=== PATIENT | male | born 1935 | race Caucasian/White ===

== ENCOUNTER 2016-08-05 12:02 | Outpatient (CLI) | payer MEDICARE, OTHER | END 2016-08-05 12:03 | disposition home or self-care (01) | DX: M79.609 Pain in unspecified limb (principal) ==

== ENCOUNTER 2016-10-12 16:23 | Outpatient (CLI) | payer MEDICARE, OTHER ==
--- NOTE | 2016-10-12 21:27 | MRI Report ---
EXAM: RIGHT CALF/TIBIA MRI WITHOUT CONTRAST EXAM DATE: 10/12/2016 05:06 PM. CLINICAL HISTORY: Right calf pain for 4 days while walking. COMPARISON: None. TECHNIQUE: Multiplanar, multisequence T1-weighted and fluid-sensitive sequences of the calf/tibia wit hout contrast. Other: None. FINDINGS: Bones: No fractures or subluxations. No marrow edema. No bone lesions. Joint Spaces: Visualized portions of the ankle and knee joints are unremarkable. Tendons: Where visualized, the Achilles and plantaris tendons are intact. Musculature: There is mild edema in the medial soleus and gastrocnemius muscles, consistent with grad e 1 strains. A mild amount of fluid is in the medial crural fascia. Other: Subcutaneous edema is seen in the calf. IMPRESSION: Grade 1 strains of the medial soleus and gastrocnemius muscles. [facility] SECTION Referring Provider Line: [phone] SITE ID: [id number]
== END 2016-10-12 16:24 | disposition home or self-care (01) ==
LOC: DI 16:23
PROVIDERS: ATTEND Internal Medicine
DX: S86.811A Strain of other muscle(s) and tendon(s) at lower leg level, right leg, initial encounter (principal)

== ENCOUNTER 2017-02-21 07:09 | Outpatient (CLI) | payer MEDICARE, OTHER ==
[2017-02-21 11:59] LABS: BASOPHILS % (AUTO) 0.4 %; EOSINOPHILS # (AUTO) 0.2 10^3/uL (0.0-0.7); EOSINOPHILS % (AUTO) 2.7 %; HCT - HEMATOCRIT 42.1 % (42.0-52.0); HGB - HEMOGLOBIN 14.1 g/dL (14.0-18.0); LYMPHOCYTES # (AUTO) 1.9 10^3/uL (1.5-3.5); LYMPHOCYTES % (AUTO) 23.3 %; MEAN CORPUSCULAR HEMOGLOBIN 30.5 pg (27.0-31.0); MEAN CORPUSCULAR HGB CONC 33.6 g/dL (32.0-36.0); MEAN PLATELET VOLUME 8.4 fL (7.4-11.4); MONOCYTES # (AUTO) 0.8 10^3/uL (0.0-1.0); MONOCYTES % (AUTO) 10.2 %; NEUTROPHILS # (AUTO) 5.1 10^3/uL (1.5-6.6); NEUTROPHILS % (AUTO) 63.4 %; RED BLOOD COUNT 4.63 10^6/uL (4.70-6.10); UNCORRECTED WHITE BLOOD COUNT 8.1 x10^3/uL; WHITE BLOOD COUNT 8.1 x10^3/uL (4.8-10.8)
[2017-02-21 12:12] LABS: ALBUMIN/GLOBULIN RATIO 1.6 (1.0-2.2); BILIRUBIN,TOTAL 0.5 mg/dL (0.2-1.0); BUN - BLOOD UREA NITROGEN 20 mg/dL (6-20); CALCIUM 9.3 mg/dL (8.5-10.3); CARBON DIOXIDE - CO2 31 mmol/L (21-32); CHLORIDE 101 mmol/L (101-111); CHOL/HDL RATIO 2.7 (<5.0); CHOLESTEROL 159 mg/dL; GFR - MDRD 72 (>89); GLUCOSE 88 mg/dL (70-100); HDL CHOLESTEROL 60 mg/dL; LDL/HDL RATIO 1.4 (<3.6); POTASSIUM 3.4 mmol/L (3.5-5.0); SODIUM 141 mmol/L (135-145); TOTAL PROTEIN 6.3 g/dL (6.7-8.2); TRIGLYCERIDES 71 mg/dL; VLDL CHOLESTEROL 14 mg/dL
== END 2017-02-21 07:10 | disposition home or self-care (01) ==
LOC: LAB.F 07:09
PROVIDERS: ATTEND Internal Medicine
DX: I10 Essential (primary) hypertension (principal); E78.5 Hyperlipidemia, unspecified
CPT/HCPCS: 36415; 80053; 80061; 85025

== ENCOUNTER 2018-02-26 08:09 | Outpatient (CLI) | payer MEDICARE, OTHER ==
[2018-02-26 12:32] LABS: BASOPHILS # (AUTO) 0.1 10^3/uL (0.0-0.1); BASOPHILS % (AUTO) 0.7 %; EOSINOPHILS # (AUTO) 0.2 10^3/uL (0.0-0.7); EOSINOPHILS % (AUTO) 2.6 %; HGB - HEMOGLOBIN 13.9 g/dL (14.0-18.0); LYMPHOCYTES # (AUTO) 1.5 10^3/uL (1.5-3.5); LYMPHOCYTES % (AUTO) 18.8 %; MEAN CORPUSCULAR HEMOGLOBIN 31.4 pg (27.0-31.0); MEAN CORPUSCULAR VOLUME 92.3 fL (80.0-94.0); MEAN PLATELET VOLUME 8.7 fL (7.4-11.4); MONOCYTES # (AUTO) 0.8 10^3/uL (0.0-1.0); MONOCYTES % (AUTO) 9.9 %; NEUTROPHILS # (AUTO) 5.2 10^3/uL (1.5-6.6); PLT - PLATELET COUNT 185 10^3/uL (130-450); RED BLOOD COUNT 4.41 10^6/uL (4.70-6.10); WHITE BLOOD COUNT 7.7 x10^3/uL (4.8-10.8)
[2018-02-26 12:43] LABS: ALBUMIN 3.6 g/dL (3.2-5.5); ALBUMIN/GLOBULIN RATIO 1.2 (1.0-2.2); ALKALINE PHOSPHATASE 53 IU/L (42-121); ALT ALANINE AMINOTRANSFERASE 22 IU/L (10-60); AST ASPARTATE AMINOTRANSFERASE 29 IU/L (10-42); BILIRUBIN,TOTAL 0.6 mg/dL (0.2-1.0); BUN - BLOOD UREA NITROGEN 22 mg/dL (6-20); CALCIUM 8.9 mg/dL (8.5-10.3); CARBON DIOXIDE - CO2 31 mmol/L (21-32); CHLORIDE 102 mmol/L (101-111); CHOL/HDL RATIO 2.3 (<5.0); CHOLESTEROL 139 mg/dL; GFR - MDRD 72 (>89); GLUCOSE 95 mg/dL (70-100); HDL CHOLESTEROL 61 mg/dL; LDL CHOLESTEROL,CALCULATED 66 mg/dL; LDL/HDL RATIO 1.1 (<3.6); SODIUM 138 mmol/L (135-145); TOTAL PROTEIN 6.5 g/dL (6.7-8.2); VLDL CHOLESTEROL 12 mg/dL
== END 2018-02-26 08:10 | disposition home or self-care (01) ==
LOC: LAB.F 08:09
PROVIDERS: ATTEND Internal Medicine
DX: N40.0 Benign prostatic hyperplasia without lower urinary tract symptoms (principal); Z79.899 Other long term (current) drug therapy; I10 Essential (primary) hypertension; E78.5 Hyperlipidemia, unspecified
CPT/HCPCS: 36415; 80053; 80061; 83721; 85025

== ENCOUNTER 2018-03-04 08:37 | Outpatient (CLI) | payer MEDICARE, OTHER ==
[2018-03-04 18:13] LABS: MEAN RETIC VALUE 119.4; RED BLOOD COUNT 4.52 10^6/uL (4.70-6.10)
== END 2018-03-04 08:38 | disposition home or self-care (01) ==
LOC: LAB.F 08:37
PROVIDERS: ATTEND Internal Medicine
DX: D64.9 Anemia, unspecified (principal)
CPT/HCPCS: 36415; 82607; 82728; 83010; 85044; 86880

== ENCOUNTER 2018-07-30 15:57 | Outpatient (CLI) | payer MEDICARE, OTHER | END 2018-07-30 23:59 | disposition home or self-care (01) | LOC: LAB.F 15:57 | PROVIDERS: ATTEND Registered Nurse | DX: M79.674 Pain in right toe(s) (principal) | CPT/HCPCS: 36415; 84550 ==

== ENCOUNTER 2018-10-23 16:08 | Outpatient (CLI) | payer MEDICARE, OTHER ==
--- NOTE | 2018-10-25 15:32 | XRAY Report ---
Reason: NECK PAIN, CHRONIC, LOW BACK PAIN, DISH, DJD, BACK Procedure Date: 10/23/2018 Accession Number: [id number] / [id number] Procedure: XR - Cervical Spine 2 View CPT Code: FULL RESULT: EXAM: CERVICAL SPINE RADIOGRAPHY EXAM DATE: 10/23/2018 04:50 PM. CLINICAL HISTORY: Chronic neck pain. COMPARISONS: None. TECHNIQUE: 3 views. FINDINGS: Alignment: Normal. No spondylolisthesis or scoliosis. Bones: The cervical vertebral bodies and posterior elements are well visualized from the skull base through C7-T1. No acute fracture seen. Possible old fracture deformity involving spinous process of C7. Disks and facets: Moderate multilevel osteoarthritic changes present. Soft Tissues: Normal. No prevertebral soft tissue swelling. The visualized lung apices are clear. IMPRESSION: 1. No acute fracture seen, with moderate multilevel osteoarthritic changes. 2. Possible old fracture deformity involving spinous process of C7. [facility]
--- NOTE | 2018-10-25 15:36 | XRAY Report ---
Reason: NECK PAIN, CHRONIC, LOW BACK PAIN, DISH, DJD, BACK Procedure Date: 10/23/2018 Accession Number: [id number] / [id number] Procedure: XR - Thoracic Spine 2 View CPT Code: FULL RESULT: EXAM: THORACIC SPINE RADIOGRAPHY EXAM DATE: 10/23/2018 04:50 PM. CLINICAL HISTORY: Chronic back pain. COMPARISON: None. TECHNIQUE: 2 views. FINDINGS: Alignment: Mild levoscoliosis, centered at T8, with Salazar angle of 7.4 degrees. Bones: No fractures or bone lesions. Disks: Mild degenerative changes present. Evidence of DISH seen. Soft Tissues: Normal. The visualized lungs and cardiomediastinal silhouette are normal. IMPRESSION: 1. Mild levoscoliosis and degenerative changes described above, with evidence of DISH. 2. No evidence of acute fracture. [facility]
--- NOTE | 2018-10-25 15:40 | XRAY Report ---
Reason: NECK PAIN, CHRONIC, LOW BACK PAIN, DISH, DJD, BACK Procedure Date: 10/23/2018 Accession Number: [id number] / [id number] Procedure: XR - Lumbar Spine 2 View CPT Code: FULL RESULT: EXAM: LUMBOSACRAL SPINE RADIOGRAPHY EXAM DATE: 10/23/2018 04:50 PM. CLINICAL HISTORY: Chronic back pain. COMPARISONS: None. TECHNIQUE: 3 views. FINDINGS: Alignment: There is mild compensatory lumbar dextroscoliosis, with Salazar angle of 4 degrees, centered at L3. Bones: Five iyh-kni-spakfsm lumbar vertebral bodies are present. There is mild wedging deformity at L1. Disks and facets: Moderate multilevel osteoarthritic changes seen. Changes of DISH noted. Sacroiliac Joints: Unremarkable. Soft Tissues: Normal. The visualized bowel gas pattern is normal. IMPRESSION: 1. Compensatory lumbar dextroscoliosis centered at L3 described above. 2. Possible mild wedging deformity at L1. Correlate clinically with focal tenderness to exclude fracture. 3. Moderate multilevel osteoarthritic changes otherwise seen. [facility]
== END 2018-10-23 16:09 | disposition home or self-care (01) ==
LOC: DI 16:08
PROVIDERS: ATTEND Nurse Practitioner
DX: M47.812 Spondylosis without myelopathy or radiculopathy, cervical region (principal); M50.30 Other cervical disc degeneration, unspecified cervical region; M48.14 Ankylosing hyperostosis [Forestier], thoracic region; M51.34 Other intervertebral disc degeneration, thoracic region; M41.9 Scoliosis, unspecified; M47.816 Spondylosis without myelopathy or radiculopathy, lumbar region; M51.36 Other intervertebral disc degeneration, lumbar region
CPT/HCPCS: 72040; 72070; 72100

== ENCOUNTER 2018-10-29 10:22 | Outpatient (CLI) | payer MEDICARE, OTHER ==
[2018-10-29 17:30] LABS: ALBUMIN 4.2 g/dL (3.2-5.5); ALBUMIN/GLOBULIN RATIO 1.6 (1.0-2.2); CREATININE 0.9 mg/dL (0.6-1.2); TOTAL PROTEIN 6.9 g/dL (6.7-8.2)
== END 2018-10-29 10:23 | disposition home or self-care (01) ==
LOC: LAB.S 10:22
PROVIDERS: ATTEND Nurse Practitioner
DX: I10 Essential (primary) hypertension (principal); G62.9 Polyneuropathy, unspecified
CPT/HCPCS: 36415; 80053

== ENCOUNTER 2018-11-09 12:19 | Outpatient (CLI) | payer MEDICARE, OTHER ==
[2018-11-09] MEDS ORDERED: GADOBUTROL 10 MMOL/10 ML VIAL IVP ONE (14:25)
[2018-11-09] MEDS ORDERED: GADOBUTROL 10 MMOL/10 ML VIAL ONE (14:25)
--- NOTE | 2018-11-09 15:58 | MRI Report ---
Reason: PERIPHERAL NEUROPATHY, HAND MUSCLE WEAKNESS, DISH, Procedure Date: 11/09/2018 Accession Number: [id number] / [id number] Procedure: MRI - Cervical Spine W/O CPT Code: FULL RESULT: EXAM: MRI CERVICAL SPINE WITHOUT CONTRAST. EXAM DATE: 11/09/2018 01:13 PM. CLINICAL HISTORY: Peripheral neuropathy, hand muscle weakness, DISH. COMPARISONS: CERVICAL SPINE 2 VIEW 10/23/2018 4:26 PM. TECHNIQUE: Multiplanar, multisequence T1-weighted and fluid-sensitive sequences of the cervical spine without contrast. Other: None. FINDINGS: Neurologic Structures: The visualized posterior fossa structures are unremarkable. No signal abnormality in the visualized spinal cord. Alignment: C2-C3 shows 4.3 mm retrolisthesis. No scoliosis. Bone Marrow: No gross fractures or bone lesions. No marrow edema. Interspace Levels/Facets: C1-C2: Significant arthrosis at the anterior arch of C1-C2 articulation. Lateral articulations are normal. C2-C3: 4.3 mm retrolisthesis at this level, left paracentral focal disk protrusion/extrusion with mass effect on the cord at this level. No areas of abnormal increased T2 signal. Mild to moderate central stenosis. Severe bilateral foraminal stenosis. C3-C4: Broad-based disk bulge, disk osteophyte complex is present. Hypertrophic facets. Moderate central stenosis. Moderate bilateral foraminal stenosis. C4-C5: Disk dehydration, broad-based disk bulge is present. Prominent facets. Moderate central stenosis. Severe bilateral foraminal stenosis. C5-C6: Disk dehydration, broad-based disk bulge is present. Hypertrophic facets. Severe central stenosis. Severe bilateral foraminal stenosis. C6-C7: Broad-based disk bulge, disk osteophyte complex, some cord remodeling. AP distance is 9.6 mm. Moderate central stenosis. Severe bilateral foraminal stenosis. C7-T1: Some disk dehydration, otherwise unremarkable. Musculature: Mild fatty atrophy of the multifidus muscle is seen. Other: The paravertebral and prevertebral soft tissues are normal. IMPRESSION: 1. C2-C3 shows 4.2 mm of retrolisthesis, no scoliosis. No areas of abnormal increased T2 signal in the posterior fossa or spinal cord. 2. C2-C3 shows left paracentral focal disk protrusion/extrusion with mass effect on the cord. Moderate central stenosis. Severe bilateral foraminal stenosis. 3. C3-C4 shows a broad-based disk bulge, moderate central stenosis and moderate bilateral foraminal stenosis. 4. C4-C5 shows moderate central stenosis and severe bilateral foraminal stenosis. 5. C5-C6 shows moderate central stenosis and severe bilateral foraminal stenosis. 6. C6-C7 shows a broad-based bulge, some cord remodeling. Severe central stenosis and severe bilateral foraminal stenosis. 7. C7-T1 show some disk dehydration, no stenosis. [facility]
--- NOTE | 2018-11-09 17:04 | MRI Report ---
Reason: NECK PAIN Procedure Date: 11/09/2018 Accession Number: [id number] / [id number] Procedure: MRI - Thoracic Spine W/O CPT Code: FULL RESULT: EXAM: MRI THORACIC SPINE WITHOUT CONTRAST EXAM DATE: 11/09/2018 01:50 PM. CLINICAL HISTORY: Neck pain. COMPARISONS: CERVICAL SPINE W/O 11/09/2018 1:04 PM LUMBAR SPINE W/WO 11/09/2018 2:08 PM. TECHNIQUE: Multiplanar, multisequence T1-weighted and fluid-sensitive sequences of the thoracic spine from C7 to L1 without contrast. Other: None. FINDINGS: Spinal Canal: No signal abnormality in the visualized spinal cord. Alignment: No scoliosis or spondylolisthesis. Bone Marrow: Mild chronic compression L1 vertebral body with concave deformity of the superior vertebral body endplate and 20% loss of vertebral body height. Disk Levels/Facets: C6-C7: Posterior 3 mm disk protrusion with mild ventral effacement of the cervical cord without cord signal abnormality. Severe left and moderate right foraminal stenosis from Luschka joint hypertrophic spurring. Severe disk degeneration. C7-T1: Mild bilateral facet joint arthrosis. Negative for foraminal stenosis. Anterolisthesis 2 mm C7 on T1. T1-T2: Mild bilateral facet joint arthrosis. Negative for spinal canal stenosis or foraminal stenosis. T2-T3: Mild bilateral facet joint arthrosis. Negative for spinal canal stenosis or foraminal stenosis. T3-T4: Mild facet joint arthrosis. T4-T5: Mild facet joint arthrosis. Negative for spinal canal stenosis or foraminal stenosis. Preservation of disk height. T5-T6: The neural foramina are negative for stenosis. Mild facet joint arthrosis. T6-T7: Preservation of disk height and signal. Negative for spinal canal stenosis or foraminal stenosis. T7-T8: Mild disk degeneration. The neural foramina are negative for stenosis. T8-T9: Mild disk degeneration. T9-T10: Mild disk degeneration. The left neural foramen is negative for stenosis. Mild right foraminal stenosis from a facet hypertrophy. T10-T11: Mild disk degeneration. The left neural foramen is negative for stenosis. Mild right foraminal stenosis from a facet hypertrophy. T11-T12: The left neural foramen is negative for stenosis. The right neural foramen is negative for stenosis. T12-L1: Negative for spinal canal stenosis or foraminal stenosis. Musculature: Normal. No edema or fatty atrophy. Other: The visualized lungs, mediastinum, and abdominal cavity are unremarkable. IMPRESSION: 1. MRI thoracic spine is compromised secondary to patient motion. 2. Negative for thoracic cord signal abnormality. 3. Negative for spinal canal stenosis or focal disk herniation. [facility]
--- NOTE | 2018-11-09 17:08 | MRI Report ---
Reason: PERIPHERAL NEUROPATHY, HAND MUSCLE WEAKNESS, DISH, Procedure Date: 11/09/2018 Accession Number: [id number] / [id number] Procedure: MRI - Lumbar Spine W/WO CPT Code: FULL RESULT: EXAM: MRI LUMBAR SPINE WITHOUT AND WITH CONTRAST EXAM DATE: 11/09/2018 02:48 PM. CLINICAL HISTORY: Peripheral neuropathy, hand muscle weakness, DISH. Low back pain and bilateral leg weakness. COMPARISONS: LUMBAR SPINE 2 VIEW 10/23/2018 4:26 PM SI JOINTS 02/21/2006 4:04 PM. TECHNIQUE: Multiplanar, multisequence T1-weighted and fluid-sensitive sequences of the lumbar spine from T12 to S1 before and after administration of intravenous contrast. Other: None. IV contrast: 9.5 cc Gadavist. FINDINGS: Neurologic Structures: The conus terminates at L2-L3. The conus medullaris and cauda equina are unremarkable. Alignment: No scoliosis or spondylolisthesis. Bone Marrow: Five kgp-jms-airlcyc lumbar vertebral bodies are assumed. Chronic compression L1 vertebral body with concave deformity of the superior vertebral body endplate and 20% loss of vertebral body height. Disk Levels/Facets: T12-L1: Mild disk degeneration. Negative for spinal canal stenosis or foraminal stenosis. L1-L2: Unremarkable. L2-L3: Unremarkable. L3-L4: Ligamentum flavum thickening. Severe right and moderate left facet joint arthrosis. Moderately severe spinal canal stenosis. Mild left and mild right lateral recess stenosis. Moderate bilateral foraminal stenosis from facet hypertrophy and diffuse disk bulge osteophyte complex. Severe disk degeneration. L4-L5: Laminectomy defect. Posterior right paracentral 4 mm disk protrusion with moderate right lateral recess stenosis and posterior displacement proximal right L5 nerve root (image 17 series 601). Mild central spinal canal stenosis. Mild right foraminal stenosis from facet hypertrophy. Negative for left foraminal stenosis. Nonenhancing right ventral epidural nodule 4 mm axial contrast T1-weighted sequence (image 17 series 901). L5-S1: Interbody osseous fusion. Negative for foraminal stenosis. Bone graft facet joint fusion. Negative for central spinal canal stenosis. Wide laminectomy. S1-S2: Lumbarization of S1. Negative for spinal canal stenosis or foraminal stenosis. Facet joint bone graft fusion. Spinal Canal: No enhancing masses within the spinal canal. No epidural abscess. Musculature: Severe low lumbar and sacrum posterior paraspinal muscle atrophy with fatty replacement. Other: The visualized retroperitoneum is unremarkable. Probable sacroiliac joint ankylosis. IMPRESSION: 1. Moderately severe spinal canal stenosis, mild bilateral lateral recess stenosis and moderate bilateral foraminal stenosis from severe disk degeneration, severe facet hypertrophic arthropathy, and ligamentum flavum thickening. 2. Posterior right paracentral L4-L5 4 mm disk protrusion/extrusion with moderate right lateral recess stenosis and posterior displacement proximal descending right L5 nerve root status post wide laminectomy and facet bone graft fusion. 3. Negative for spinal canal stenosis or foraminal stenosis L5-S1 interspaces status post wide laminectomy and posterior bone graft facet fusion. 4. Interbody osseous fusion L5-S1. 5. Mild chronic compression L1 vertebral body with concave deformity of the superior vertebral body endplate and 20% loss of vertebral body height. Comment: The following findings are so common in adults without low back pain that while we report their presence, they must be interpreted with caution and in the context of the clinical situation. (Reference Yassinevik et al, Spine 2001) Prevalence of findings in patients without low back pain: Disk degeneration (any evidence): 92% Disk desiccation/T2 signal loss: 83% Disk height loss: 56% Disk bulge: 64% Disk protrusion: 32% Annular tear/high intensity zone: 38% [facility]
== END 2018-11-09 12:20 | disposition home or self-care (01) ==
LOC: DI 12:19
PROVIDERS: ATTEND Nurse Practitioner
DX: M48.02 Spinal stenosis, cervical region (principal); M50.21 Other cervical disc displacement, high cervical region; M51.26 Other intervertebral disc displacement, lumbar region; M48.061 Spinal stenosis, lumbar region without neurogenic claudication; M62.81 Muscle weakness (generalized); G60.9 Hereditary and idiopathic neuropathy, unspecified; M48.10 Ankylosing hyperostosis [Forestier], site unspecified; R20.2 Paresthesia of skin
CPT/HCPCS: 72141; 72146; 72158; A9585

== ENCOUNTER 2019-05-25 10:15 | Outpatient (CLI) | payer MEDICARE, OTHER ==
[2019-05-25 10:57] LABS: BASOPHILS # (AUTO) 0.1 10^3/uL (0.0-0.1); BASOPHILS % (AUTO) 0.7 %; EOSINOPHILS # (AUTO) 0.2 10^3/uL (0.0-0.7); EOSINOPHILS % (AUTO) 2.2 %; HGB - HEMOGLOBIN 13.1 g/dL (14.0-18.0); LYMPHOCYTES # (AUTO) 1.3 10^3/uL (1.5-3.5); LYMPHOCYTES % (AUTO) 19.4 %; MEAN CORPUSCULAR HGB CONC 31.8 g/dL (32.0-36.0); MEAN CORPUSCULAR VOLUME 97.4 fL (80.0-94.0); MEAN PLATELET VOLUME 9.3 fL (7.4-11.4); MONOCYTES # (AUTO) 0.8 10^3/uL (0.0-1.0); MONOCYTES % (AUTO) 11.2 %; NEUTROPHILS # (AUTO) 4.5 10^3/uL (1.5-6.6); NEUTROPHILS % (AUTO) 66.1 %; PLT - PLATELET COUNT 195 10^3/uL (130-450); RED BLOOD COUNT 4.23 10^6/uL (4.70-6.10); RED CELL DISTRIBUTION WIDTH 13.2 % (12.0-15.0); WHITE BLOOD COUNT 6.9 x10^3/uL (4.8-10.8)
[2019-05-25 11:06] LABS: INR 1.1 (0.8-1.2); PT - PROTHROMBIN TIME 12.8 secs (9.9-12.6)
[2019-05-25 11:09] LABS: ALBUMIN 4.1 g/dL (3.2-5.5); ALBUMIN/GLOBULIN RATIO 1.8 (1.0-2.2); BILIRUBIN,TOTAL 0.9 mg/dL (0.2-1.0); CALCIUM 9.9 mg/dL (8.5-10.3); TOTAL PROTEIN 6.4 g/dL (6.7-8.2)
[2019-05-25 11:13] LABS: PARTIAL THROMBOPLASTIN TIME 36.3 secs (24.9-33.3)
== END 2019-05-25 10:16 | disposition home or self-care (01) ==
LOC: LAB 10:15
PROVIDERS: ATTEND Nurse Practitioner
DX: Z01.812 Encounter for preprocedural laboratory examination (principal)
CPT/HCPCS: 36415; 80053; 85025; 85610; 85730

== ENCOUNTER 2019-06-16 15:35 | Outpatient (CLI) | payer MEDICARE, OTHER ==
--- NOTE | 2019-06-17 01:29 | XRAY Report ---
Reason: LEFT HIP PAIN Procedure Date: 06/16/2019 Accession Number: [id number] / [id number] Procedure: WCP - Hip 1 View LT CPT Code: Final Report FULL RESULT: EXAM: LEFT HIP RADIOGRAPHY EXAM DATE: 06/16/2019 03:35 PM. CLINICAL HISTORY: LEFT HIP PAIN. COMPARISON: HIP 2 VIEW RT 12/14/2014 2:08 PM. TECHNIQUE: 2 views. FINDINGS: Bones: Normal bone mineralization. No fractures or bone lesion. Joints: No dislocation. Bilateral hip joint space narrowing and osteophyte formation, right greater than left. Soft Tissues: No soft tissue swelling. Extensive vascular calcifications are seen. IMPRESSION: Bilateral hip joint osteoarthritis. [facility]
== END 2019-06-16 23:59 | disposition home or self-care (01) ==
LOC: DI.WCP 15:35
PROVIDERS: ATTEND Nurse Practitioner
DX: M16.0 Bilateral primary osteoarthritis of hip (principal)

== ENCOUNTER 2019-07-23 09:42 | Outpatient (CLI) | payer MEDICARE, OTHER | END 2019-07-23 09:43 | disposition EMS.NT | LOC: EMS 09:42 | PROVIDERS: ATTEND Surgery | DX: M54.9 Dorsalgia, unspecified (principal) ==

== ENCOUNTER 2019-07-23 10:47 | Emergency (ER) | payer MEDICARE, OTHER ==
[2019-07-23] MEDS ORDERED: KETOROLAC 60 MG/2 ML VIAL IM STA (12:39)
[2019-07-23] MEDS ORDERED: HYDROmorphone 1 MG/ML CARPUJECT IM STA (12:39)
[2019-07-23 13:06] VITALS: BP 157/85
--- NOTE | 2019-07-23 13:11 | ED Physician Documentation ---
History of Present Illness - Stated complaint Stated Complaint: BACK PX - Chief complaint Chief Complaint: Back Pain - History obtained from History obtained from: Patient - Additonal information Additional information: Pt comes to the ED complaining of an increase in his post-operative back pain. Pt states he had surgery several days ago, and has been getting back into physical activity now. Pt states he did not have any distinct injury. He has been taking Vicodin 10/325, 1 tab q6h. No abdominal pain. No fevers or chills. Pt states the pain is not right at the incision site or in the spine, but lateral to the spine, spreading across his back on both sides, at the level of the incision. Pt denies drainage from the wound. No numbness or tingling in the legs. No weakness. No other complaints at this time. Review of Systems Ten Systems: 10 systems reviewed and negative Constitutional: reports: Reviewed and negative Eyes: reports: Reviewed and negative Ears: reports: Reviewed and negative Nose: reports: Reviewed and negative Throat: reports: Reviewed and negative Cardiac: reports: Reviewed and negative Respiratory: reports: Reviewed and negative GI: reports: Reviewed and negative : reports: Reviewed and negative Skin: reports: Reviewed and negative Musculoskeletal: reports: Back pain Neurologic: reports: Reviewed and negative Psychiatric: reports: Reviewed and negative Endocrine: reports: Reviewed and negative Immunocompromised: reports: Reviewed and negative PD PAST MEDICAL HISTORY - Past Medical History Cardiovascular: Hypertension, High cholesterol Respiratory: None Endocrine/Autoimmune: None GI: Colon polyps : None HEENT: Other Psych: None Musculoskeletal: Osteoarthritis, Chronic back pain Derm: None - Past Surgical History Past Surgical History: Yes General: Colonoscopy Ortho: Rotator cuff repair, Spine surgery - Present Medications Home Medications: Ambulatory Orders Medication Instructions Recorded Confirmed Aspirin [Aspir-Low] 81 mg PO DAILY 10/05/15 11/30/15 Pravastatin [Pravachol] 40 mg PO DAILY 10/05/15 11/29/15 Ramipril 10 mg PO BID 10/05/15 11/29/15 amLODIPine [Norvasc] 5 mg PO BID 10/05/15 11/29/15 hydroCHLOROthiazide [Hydrodiuril] 25 mg PO DAILY 10/05/15 11/29/15 Multivitamin [Multiple Vitamins] 02/20/18 Docusate Sodium 100 mg PO 07/23/19 HYDROcod/ACETAM 5/325 [[place] 5/325] 1 - 2 ea PO Q6H PRN 07/23/19 07/23/19 Hydrocodone/Acetaminophen 2 each PO Q4HR #20 tablet 07/23/19 [Hydrocodon-Acetaminophn 10-325] Methocarbamol [Robaxin-750] 07/23/19 - Allergies Allergies/Adverse Reactions: Allergies Allergy/AdvReac Type Severity Reaction Status Date / Time No Known Drug Allergies Allergy Verified 02/20/18 12:29 - Social History Does the pt smoke?: No Smoking Status: Never smoker Does the pt drink ETOH?: No Does the pt have substance abuse?: No - Immunizations Immunizations are current?: Yes PD ED PE NORMAL - Vitals Vital signs reviewed: Yes - General General: Alert and oriented X 3, No acute distress - HEENT HEENT: Atraumatic, PERRL, EOMI, Moist mucous membranes - Neck Neck: Supple, no meningeal sign - Cardiac Cardiac: RRR, No murmur, Strong equal pulses - Respiratory Respiratory: No respiratory distress, Clear bilaterally - Abdomen Abdomen: Soft, Non tender, Non distended - Back Back: No spinal TTP, Other (Pt has mild tenderness across his lumbar area generally and bilaterally. ROM moderately limited. ) - Derm Derm: Warm and dry, Other (PT has a lower lumbar incision site that is c/d/i. No erythema or edema. No induration or fluctuance. Wound is healing well with steri-strips in place.) - Extremities Extremities: No deformity - Neuro Neuro: Alert and oriented X 3 - Psych Psych: Normal mood, Normal affect Results - Vitals Vitals: Oxygen O2 Source Room air PD MEDICAL DECISION MAKING - ED course Complexity details: considered differential, d/w patient ED course: The pt was treated symptomatically in the ED. I did not find evidence of a wound infection, and no symptoms were present to indicate neurologic compromise. The pt did not demonstrate hemodynamic instability, and I felt aortic pathology was unlikely. The pain was mechanically exacerbated, and I felt it was unlikely to be related to the urinary system. I d/w pt that sometimes when a pt gets back to movement after a back surgery, the pain can increase for a bit. I have advised him that he may take more of his Vicodin if needed--up to 2 every 4 hours. If this still is not helpful he should follow up with his career transition specialist to discuss the matter further. We have discussed the usual indications for return. Departure - Departure Disposition: 01 Home, Self Care Clinical Impression: Back pain Qualifiers: Back pain location: low back pain Chronicity: acute Back pain laterality: right Sciatica presence: without sciatica Qualified Code(s): M54.5 - Low back pain Condition: Stable Instructions: ED Spasm Back No Trauma Prescriptions: Hydrocodone/Acetaminophen [Hydrocodon-Acetaminophn 10-325] 2 each PO Q4HR #20 tablet Comments: You may take up to 2 tablets of your hydrocodone every 4 hours as needed for pain. The Robaxin you should keep at the same dose you are already on. There is no evidence of any complication with your surgical site and your wound does not show any evidence of infection. Please follow-up with your surgeon as planned. Discharge Date/Time: 07/23/19 13:50
== END 2019-07-23 13:50 | disposition home or self-care (01) ==
LOC: ED 10:47
DX: M54.5 Low back pain (principal); Z98.890 Other specified postprocedural states; I10 Essential (primary) hypertension; Z79.82 Long term (current) use of aspirin
CPT/HCPCS: 96372; 99283; 99284; J1170

== ENCOUNTER 2019-07-27 17:38 | Outpatient (CLI) | payer MEDICARE, OTHER ==
[2019-07-27 18:18] LABS: ALBUMIN 3.7 g/dL (3.2-5.5); ALBUMIN/GLOBULIN RATIO 1.3 (1.0-2.2); BILIRUBIN,TOTAL 0.7 mg/dL (0.2-1.0); CALCIUM 9.1 mg/dL (8.5-10.3); TOTAL PROTEIN 6.6 g/dL (6.7-8.2)
[2019-07-27 18:30] LABS: PSA FREE 0.553 ng/mL (0.16-2.81)
[2019-07-27 18:31] LABS: PSA TOTAL 3.929 ng/mL (0.000-2.000)
== END 2019-07-27 23:59 | disposition home or self-care (01) ==
LOC: LAB 17:38
PROVIDERS: ATTEND Nurse Practitioner
DX: I10 Essential (primary) hypertension (principal); I65.29 Occlusion and stenosis of unspecified carotid artery; Z79.899 Other long term (current) drug therapy; N40.0 Benign prostatic hyperplasia without lower urinary tract symptoms
CPT/HCPCS: 36415; 80053; 84153; 84154

== ENCOUNTER 2019-08-06 08:00 | Outpatient (CLI) | payer MEDICARE, OTHER ==
[2019-08-06 18:40] LABS: ALBUMIN 4.2 g/dL (3.2-5.5); ALBUMIN/GLOBULIN RATIO 1.5 (1.0-2.2); BILIRUBIN,TOTAL 0.5 mg/dL (0.2-1.0); CALCIUM 9.8 mg/dL (8.5-10.3); CREATININE 1.1 mg/dL (0.6-1.2)
== END 2019-08-06 23:59 | disposition home or self-care (01) ==
LOC: LAB.WCP 08:00
PROVIDERS: ATTEND Nurse Practitioner
DX: I65.29 Occlusion and stenosis of unspecified carotid artery (principal); R60.9 Edema, unspecified
CPT/HCPCS: 36415; 80053; 83880

== ENCOUNTER 2019-08-14 22:38 | Emergency (ER) | payer MEDICARE, OTHER ==
--- NOTE | 2019-08-14 23:09 | ED Physician Documentation ---
PD HPI ABD PAIN - Stated complaint Stated Complaint: CANNOT VOID - Chief complaint Chief Complaint: Abd Pain - History obtained from History obtained from: Patient - History of Present Illness Timing - onset: How many days ago (4) Timing - details: Gradual onset, Waxing and waning Pain level max: 8 Pain level now: 0 Quality: Cramping Location: All over / everywhere (predominantly LLQ) Radiation: Other (no radiation) Improved by: Other (no ameliorating factors) Worsened by: Other (no exacerbating factors) Associated symptoms: Constipation. No: Fever, Nausea, Vomiting, Diarrhea Recently seen: Surgery - Additional information Additional information: recently underwent lumbar surgery and has been taking vicodin for pain control. Has not had BM for approximately 10 days, and c/o 4 days of urge to defecate without BM and abdominal cramping that is most pronounced in LLQ, episodic without pain between episodes. Episodes of abd. cramping are increasing in frequency and intensity of pain. no results with fleet's at home Review of Systems Constitutional: denies: Fever, Chills, Sweats GI: reports: Abdominal Pain, Constipation. denies: Nausea, Vomiting, Diarrhea : denies: Dysuria, Frequency PD PAST MEDICAL HISTORY - Past Medical History Past Medical History: Yes Cardiovascular: Hypertension, High cholesterol Respiratory: None Endocrine/Autoimmune: None GI: Colon polyps : None HEENT: Other Psych: None Musculoskeletal: Osteoarthritis, Chronic back pain Derm: None - Past Surgical History Past Surgical History: Yes General: Colonoscopy Ortho: Rotator cuff repair, Spine surgery - Present Medications Home Medications: Ambulatory Orders Medication Instructions Recorded Confirmed Aspirin [Aspir-Low] 81 mg PO DAILY 10/05/15 11/30/15 Pravastatin [Pravachol] 40 mg PO DAILY 10/05/15 11/29/15 Ramipril 10 mg PO BID 10/05/15 11/29/15 amLODIPine [Norvasc] 10 mg PO BID 10/05/15 11/29/15 hydroCHLOROthiazide [Hydrodiuril] 12.5 mg PO DAILY 10/05/15 11/29/15 Multivitamin [Multiple Vitamins] 1 tab DAILY 02/20/18 Docusate Sodium 100 mg PO 07/23/19 Hydrocodone/Acetaminophen 2 each PO Q4HR #20 tablet 07/23/19 [Hydrocodon-Acetaminophn 10-325] Naproxen 250 tab BID 08/14/19 08/14/19 Tamsulosin [Flomax] 1 tab DAILY 08/14/19 08/14/19 methocarbamoL [Robaxin] 1 tab QID 08/14/19 08/14/19 - Allergies Allergies/Adverse Reactions: Allergies Allergy/AdvReac Type Severity Reaction Status Date / Time No Known Drug Allergies Allergy Verified 08/14/19 22:48 - Social History Does the pt smoke?: No Smoking Status: Never smoker Does the pt drink ETOH?: No Does the pt have substance abuse?: No - Immunizations Immunizations are current?: Yes - POLST Patient has POLST: No PD ED PE NORMAL - Vitals Vital signs reviewed: Yes - General General: Alert and oriented X 3, No acute distress (NAD for most of H+P, but episode lasting 1-2 minutes of obvious painful distress), Well developed/nourished - HEENT HEENT: Moist mucous membranes - Cardiac Cardiac: RRR, No murmur - Respiratory Respiratory: No respiratory distress, Clear bilaterally - Abdomen Abdomen: Soft, Non tender, Non distended PD ED PE EXPANDED - Abdomen Abdomen: Decreased BS Results - Vitals Vitals: Vital Signs - 24 hr 08/14/19 08/15/19 22:42 00:51 Temperature 36.5 C Heart Rate 78 81 Respiratory 18 18 Rate Blood Pressure 189/93 H 175/78 H O2 Saturation 98 98 Oxygen O2 Source Room air PD MEDICAL DECISION MAKING - ED course Complexity details: re-evaluated patient, considered differential, d/w patient ED course: excellent results with soap suds enema (RN gave two of these and performed manual disimpaction as well; large, firm brown stool and resolution of symptoms ensued) Departure - Departure Disposition: 01 Home, Self Care Clinical Impression: Constipation Qualifiers: Constipation type: unspecified constipation type Qualified Code(s): K59.00 - Constipation, unspecified Condition: Good Instructions: ED Constipation Follow-Up: Gabbie Ernst ARNP, [employer] TECHNICIAN-C [Primary Care Provider] - Discharge Date/Time: 08/15/19 00:45
[2019-08-15 00:52] VITALS: BP 175/78
== END 2019-08-15 00:45 | disposition home or self-care (01) ==
LOC: ED 22:38
DX: K59.00 Constipation, unspecified (principal); Z98.890 Other specified postprocedural states; I10 Essential (primary) hypertension; Z79.82 Long term (current) use of aspirin
CPT/HCPCS: 99282; 99284

== ENCOUNTER 2019-10-01 08:00 | Outpatient (CLI) | payer MEDICARE, OTHER ==
[2019-10-01 15:24] LABS: BASOPHILS % (AUTO) 0.6 %; EOSINOPHILS # (AUTO) 0.2 10^3/uL (0.0-0.7); EOSINOPHILS % (AUTO) 2.5 %; HGB - HEMOGLOBIN 12.9 g/dL (14.0-18.0); LYMPHOCYTES # (AUTO) 1.8 10^3/uL (1.5-3.5); LYMPHOCYTES % (AUTO) 24.1 %; MEAN CORPUSCULAR HEMOGLOBIN 30.5 pg (27.0-31.0); MEAN CORPUSCULAR HGB CONC 31.6 g/dL (32.0-36.0); MEAN CORPUSCULAR VOLUME 96.5 fL (80.0-94.0); MEAN PLATELET VOLUME 10.6 fL (7.4-11.4); MONOCYTES # (AUTO) 0.8 10^3/uL (0.0-1.0); MONOCYTES % (AUTO) 10.6 %; NEUTROPHILS # (AUTO) 4.5 10^3/uL (1.5-6.6); NEUTROPHILS % (AUTO) 61.9 %; PLT - PLATELET COUNT 195 10^3/uL (130-450); RED BLOOD COUNT 4.23 10^6/uL (4.70-6.10); WHITE BLOOD COUNT 7.3 x10^3/uL (4.8-10.8)
[2019-10-01 15:44] LABS: ALBUMIN 4.1 g/dL (3.2-5.5); ALBUMIN/GLOBULIN RATIO 1.7 (1.0-2.2); BILIRUBIN,TOTAL 0.5 mg/dL (0.2-1.0); CALCIUM 9.6 mg/dL (8.5-10.3); TOTAL PROTEIN 6.5 g/dL (6.7-8.2)
== END 2019-10-01 23:59 | disposition home or self-care (01) ==
LOC: LAB.S 08:00
PROVIDERS: ATTEND Emergency Medicine
DX: R60.9 Edema, unspecified (principal); I10 Essential (primary) hypertension
CPT/HCPCS: 36415; 80053; 83880; 85025; 85379

== ENCOUNTER 2020-05-09 09:03 | Outpatient (CLI) | payer MEDICARE, OTHER ==
[2020-05-09 14:28] LABS: BASOPHILS % (AUTO) 0.7 %; EOSINOPHILS # (AUTO) 0.2 10^3/uL (0.0-0.7); EOSINOPHILS % (AUTO) 3.7 %; HGB - HEMOGLOBIN 13.4 g/dL (14.0-18.0); LYMPHOCYTES # (AUTO) 1.6 10^3/uL (1.5-3.5); LYMPHOCYTES % (AUTO) 25.2 %; MEAN CORPUSCULAR HEMOGLOBIN 30.7 pg (27.0-31.0); MEAN CORPUSCULAR HGB CONC 31.4 g/dL (32.0-36.0); MEAN CORPUSCULAR VOLUME 97.7 fL (80.0-94.0); MEAN PLATELET VOLUME 11.2 fL (7.4-11.4); MONOCYTES # (AUTO) 0.6 10^3/uL (0.0-1.0); MONOCYTES % (AUTO) 9.1 %; NEUTROPHILS # (AUTO) 3.8 10^3/uL (1.5-6.6); PLT - PLATELET COUNT 176 10^3/uL (130-450); RED BLOOD COUNT 4.37 10^6/uL (4.70-6.10); RED CELL DISTRIBUTION WIDTH 13.8 % (12.0-15.0); WHITE BLOOD COUNT 6.2 x10^3/uL (4.8-10.8)
[2020-05-09 15:28] LABS: ALBUMIN/GLOBULIN RATIO 1.9 (1.0-2.2); ALKALINE PHOSPHATASE 52 IU/L (42-121); ALT ALANINE AMINOTRANSFERASE 24 IU/L (10-60); AST ASPARTATE AMINOTRANSFERASE 27 IU/L (10-42); BILIRUBIN,TOTAL 0.9 mg/dL (0.2-1.0); BUN - BLOOD UREA NITROGEN 21 mg/dL (6-20); CALCIUM 9.4 mg/dL (8.5-10.3); CARBON DIOXIDE - CO2 31 mmol/L (21-32); CHLORIDE 107 mmol/L (101-111); CHOL/HDL RATIO 2.4 (<5.0); CHOLESTEROL 160 mg/dL; CREATININE 0.5 mg/dL (0.6-1.2); GLUCOSE 99 mg/dL (70-100); HDL CHOLESTEROL 67 mg/dL; LDL CHOLESTEROL,CALCULATED 79 mg/dL; LDL/HDL RATIO 1.2 (<3.6); TOTAL PROTEIN 6.1 g/dL (6.7-8.2); VLDL CHOLESTEROL 14 mg/dL
== END 2020-05-09 09:04 | disposition home or self-care (01) ==
LOC: LAB.S 09:03
PROVIDERS: ATTEND Nurse Practitioner
DX: F32.9 Major depressive disorder, single episode, unspecified (principal); Z79.899 Other long term (current) drug therapy; D64.9 Anemia, unspecified; N40.0 Benign prostatic hyperplasia without lower urinary tract symptoms; I10 Essential (primary) hypertension; E78.5 Hyperlipidemia, unspecified; G62.9 Polyneuropathy, unspecified
CPT/HCPCS: 36415; 80053; 80061; 83721; 84153; 84443; 85025

== ENCOUNTER 2020-06-06 15:19 | Outpatient (CLI) | payer MEDICARE, OTHER ==
--- NOTE | 2020-06-07 10:00 | Ultrasound Report ---
PROCEDURE: Testicle INDICATIONS: INGUINAL PAIN, BPH, ORGANIC ED TECHNIQUE: Real-time scanning was performed of the scrotum and testicles, with image documentation. Color and p ulse Doppler interrogation was performed of both testicles. Right groin was evaluated with Valsalva m aneuver. COMPARISON: None. FINDINGS: Right: Testicle is normal in size at 4.4 x 2.8 x 2.8 cm, and homogenous in echotexture. Epididymis is normal in overall size and morphology. Small epididymal cysts measuring 0.3 cm. Moderate hydrocele . No varicoceles. Overlying scrotal skin is normal in thickness. Fat-containing right inguinal hernia. The hernia neck measures 1 cm. The hernia is reducible. Left: Testicle is normal in size at 4.4 x 3 x 2.6 cm, and homogeneous in echotexture. Epididymis is normal in overall size and morphology. Small epididymal cysts measuring 0.6 cm. Moderate hydrocele. No varicoceles. Overlying scrotal skin is normal in thickness. Doppler: Color and pulse Doppler demonstrate normal and symmetric arterial flow in both testicles. IMPRESSION: 1. Small fat-containing right inguinal hernia. 2. Moderate sized bilateral hydroceles. No varicocele. 3. No testicular mass. Blood flow in the testes is symmetric. Reviewed by: Farhat Morales MD on 06/07/2020 9:59 AM PDT Approved by: Farhat Morales MD on 06/07/2020 9:59 AM PDT Station ID: [id number]
== END 2020-06-06 15:20 | disposition home or self-care (01) ==
LOC: DI 15:19
PROVIDERS: ATTEND Nurse Practitioner
DX: R10.2 Pelvic and perineal pain (principal); N40.0 Benign prostatic hyperplasia without lower urinary tract symptoms; N52.9 Male erectile dysfunction, unspecified; K40.90 Unilateral inguinal hernia, without obstruction or gangrene, not specified as recurrent; N43.3 Hydrocele, unspecified

== ENCOUNTER 2021-01-16 08:27 | Outpatient (CLI) | payer MEDICARE, OTHER ==
[2021-01-16 14:22] LABS: BASOPHILS % (AUTO) 0.5 %; EOSINOPHILS # (AUTO) 0.2 10^3/uL (0.0-0.7); EOSINOPHILS % (AUTO) 3.5 %; HCT - HEMATOCRIT 43.7 % (42.0-52.0); HGB - HEMOGLOBIN 14.1 g/dL (14.0-18.0); LYMPHOCYTES # (AUTO) 1.7 10^3/uL (1.5-3.5); LYMPHOCYTES % (AUTO) 27.1 %; MEAN CORPUSCULAR HGB CONC 32.3 g/dL (32.0-36.0); MEAN CORPUSCULAR VOLUME 99.3 fL (80.0-94.0); MEAN PLATELET VOLUME 10.8 fL (7.4-11.4); MONOCYTES # (AUTO) 0.6 10^3/uL (0.0-1.0); MONOCYTES % (AUTO) 9.7 %; NEUTROPHILS # (AUTO) 3.7 10^3/uL (1.5-6.6); NEUTROPHILS % (AUTO) 58.9 %; PLT - PLATELET COUNT 193 10^3/uL (130-450); RED CELL DISTRIBUTION WIDTH 13.3 % (12.0-15.0); WHITE BLOOD COUNT 6.3 x10^3/uL (4.8-10.8)
[2021-01-16 15:02] LABS: ALBUMIN 4.2 g/dL (3.2-5.5); ALBUMIN/GLOBULIN RATIO 1.9 (1.0-2.2); ALKALINE PHOSPHATASE 60 IU/L (42-121); ALT ALANINE AMINOTRANSFERASE 19 IU/L (10-60); AST ASPARTATE AMINOTRANSFERASE 19 IU/L (10-42); BUN - BLOOD UREA NITROGEN 22 mg/dL (6-20); CALCIUM 9.7 mg/dL (8.5-10.3); CARBON DIOXIDE - CO2 32 mmol/L (21-32); CHLORIDE 106 mmol/L (101-111); CHOL/HDL RATIO 2.4 (<5.0); CHOLESTEROL 181 mg/dL; CREATININE 1.1 mg/dL (0.6-1.2); GFR - MDRD 64 (>89); GLUCOSE 94 mg/dL (70-100); HDL CHOLESTEROL 75 mg/dL; LDL CHOLESTEROL,CALCULATED 91 mg/dL; LDL/HDL RATIO 1.2 (<3.6); POTASSIUM 3.4 mmol/L (3.5-5.0); SODIUM 143 mmol/L (135-145); TOTAL PROTEIN 6.4 g/dL (6.7-8.2); TRIGLYCERIDES 73 mg/dL; VLDL CHOLESTEROL 15 mg/dL
== END 2021-01-16 08:28 | disposition home or self-care (01) ==
LOC: LAB.S 08:27
PROVIDERS: ATTEND Internal Medicine
DX: I10 Essential (primary) hypertension (principal)
CPT/HCPCS: 36415; 80053; 80061; 83721; 85025

== ENCOUNTER 2021-01-24 07:43 | Outpatient (CLI) | payer MEDICARE, OTHER | END 2021-01-24 07:44 | disposition home or self-care (01) | LOC: LAB.S 07:43 | PROVIDERS: ATTEND Internal Medicine | DX: R53.83 Other fatigue (principal) | CPT/HCPCS: 36415; 84403 ==

== ENCOUNTER 2021-02-20 13:30 | Outpatient (CLI) | payer MEDICARE, OTHER ==
--- NOTE | 2021-02-20 15:19 | XRAY Report ---
PROCEDURE: Cervical Spine Complete INDICATIONS: CERVICAL SPONDYLOSIS,NECK PAIN TECHNIQUE: 6 view(s) of the cervical spine were acquired. COMPARISON: MRI cervical spine 11/09/2018 FINDINGS: Bones: No fractures or dislocations to the C7-T1 level. The lateral masses of C1 appear intact on t he odontoid view. No suspicious bony lesions. There is trace anterolisthesis of C4 on C5, C5 on C6 and C6 on C7. There is moderate to severe disc space narrowing at 67 with bridging anterior osteophyt es. Multilevel uncovertebral hypertrophy is present. Multilevel moderate to severe foraminal narrowin g is present most notable from C4-5 through C6-7 on the right and C3-4 through C6-7 on the left. Soft tissues: No prevertebral soft tissue swelling. IMPRESSION: Multilevel degenerative changes as above most notable from C4-5 through C6-7 bilaterally . Reviewed by: Gerri Gilmore MD on 02/20/2021 3:18 PM PST Approved by: Gerri Gilmore MD on 02/20/2021 3:18 PM PST Station ID: [id number]
--- NOTE | 2021-02-20 16:34 | MRI Report ---
PROCEDURE: Cervical Spine W/O INDICATIONS: NECK PAIN TECHNIQUE: Noncontrast sagittal T1 spin echo and T2 fast spin echo, sagittal STIR, foraminal oblique sagittal T2 fast spin echo, and axial gradient echo or T2 fast spin echo through the cervical spine. COMPARISON: None. FINDINGS: Image quality: Excellent. Alignment and Curvature: There is mild, approximately one half and 2 mm of C2-C3 retrolisthesis Ther e is mild, approximately 2-3 mm of C3-C4 anterolisthesis. Bone Marrow: Reactive endplate changes noted adjacent C6-C7 and C7-T1 discs.. Spinal Cord: Visualized spinal cord has normal size and signal. No cerebellar tonsillar herniation. Paraspinous Soft Tissues: No paravertebral masses. Prevertebral soft tissues are normal in thicknes s. C2-C3: Loss of disc signal. Moderate, diffuse disc bulge. Moderate-sized central disc protrusion. Mi ld ligamentum flavum hypertrophy. Severe narrowing of the central canal with compression of the cervi justin spinal cord. Moderate bilateral facet hypertrophy. Severe right and moderate left neural foramina l narrowing with compression of the exiting right C3 nerve root. C3-C4: Loss of disc signal. Mild, diffuse disc bulge. Mild bilateral facet hypertrophy. Mild bilate ral uncovertebral joint hypertrophy. Hksy-vy-jsjbfefe narrowing of the central canal. Moderate bilate ral neural foraminal narrowing. No neural compression. C4-C5: Loss of disc signal. Mild, diffuse disc bulge. Moderate bilateral facet hypertrophy. Mild ivory ateral uncovertebral joint hypertrophy. Severe narrowing of the central canal with mild compression o f the cervical spinal cord. Severe bilateral neural foraminal narrowing with compression of the exiti ng C5 nerve roots. C5-C6: Loss of disc signal. Mild, diffuse disc bulge. Moderate bilateral facet hypertrophy. Mild ivory ateral uncovertebral joint hypertrophy. Moderate narrowing of the central canal. Severe bilateral tiffany ral foraminal narrowing with compression of the exiting C6 nerve roots. C6-C7: Loss of disc signal and height. Moderate, diffuse disc bulge. Mild bilateral facet hypertroph y. Moderate bilateral uncovertebral joint hypertrophy. Severe narrowing of the central canal with com pression of the cervical spinal cord. Severe bilateral neural foraminal narrowing with compression of the exiting C7 nerve roots. C7-T1: Loss of disc signal. Mild, diffuse disc bulge. Mild bilateral facet hypertrophy. Mild narrowi ng of the central canal. Mild bilateral neural foraminal narrowing. No neural compression. IMPRESSION: 1. Multilevel degenerative disc disease. 2. Multilevel facet and uncovertebral arthropathy. 3. Severe C2-C3, C4-C5 and C6-7 C7 central canal narrowing with compression of the cervical spinal co rd. 4. Severe right C2-C3 neural foraminal narrowing with compression of the exiting right C3 nerve root. Severe bilateral C4-C5, C5-C6 and C6-7 C7 neural foraminal narrowing with compression of the bilater al exiting C5, C6 and C7 nerve roots. Reviewed by: Elaine Hebert MD, PhD on 02/20/2021 4:33 PM PST Approved by: Elaine Hebert MD, PhD on 02/20/2021 4:33 PM PST Station ID: [id number]
== END 2021-02-20 13:31 | disposition home or self-care (01) ==
LOC: DI 13:30
PROVIDERS: ATTEND Nurse Practitioner
DX: M47.812 Spondylosis without myelopathy or radiculopathy, cervical region (principal); M43.12 Spondylolisthesis, cervical region; M50.321 Other cervical disc degeneration at C4-C5 level; M48.02 Spinal stenosis, cervical region; M50.21 Other cervical disc displacement, high cervical region

== ENCOUNTER 2021-04-24 08:00 | Outpatient (CLI) | payer MEDICARE, OTHER ==
--- NOTE | 2021-04-24 16:47 | XRAY Report ---
PROCEDURE: Lumbar Spine 2 View INDICATIONS: LOW BACK PAIN TECHNIQUE: 3 views of the lumbar spine were acquired. COMPARISON: Reference is made to the MR lumbar spine dated November 09, 2018 FINDINGS: Bones: 5 [id number] vertebrae are present. Preserved bony alignment. Increased concavity of th e L1 superior endplate, which may reflect Schmorl's node. The remaining vertebral body heights are ma intained. Dextrocurvature of the lumbar spine with left bridging osteophytosis. Moderate disc height loss and L3-4 with endplate sclerosis and minimal retrolisthesis. Moderate to advanced facet arthrosis at L5-S1. Soft tissues: Overlying bowel gas pattern is normal. No suspicious soft tissue calcifications. IMPRESSION: Lumbar spine degeneration without significant change. Reviewed by: Marcelo Ambrosio MD on 04/24/2021 4:46 PM PST Approved by: Marcelo Ambrosio MD on 04/24/2021 4:46 PM PST Station ID: [id number]
== END 2021-04-24 23:59 | disposition home or self-care (01) ==
LOC: DI.S 08:00
PROVIDERS: ATTEND Registered Nurse
DX: M43.16 Spondylolisthesis, lumbar region (principal); M47.27 Other spondylosis with radiculopathy, lumbosacral region; M51.16 Intervertebral disc disorders with radiculopathy, lumbar region

== ENCOUNTER 2021-04-26 08:27 | Outpatient (CLI) | payer MEDICARE, OTHER ==
--- NOTE | 2021-04-26 12:28 | XRAY Report ---
PROCEDURE: Chest 2 View X-Ray INDICATIONS: PREOP EXAM TECHNIQUE: 2 view(s) of the chest. COMPARISON: None. FINDINGS: SUPPORT DEVICES: None. LUNGS/PLEURA: No focal consolidation, pleural effusion or space-occupying pneumothorax. MEDIASTINUM: The cardiomediastinal silhouette is within normal limits. BONES/SOFT TISSUES: No acute abnormality. IMPRESSION: 1.No acute cardiopulmonary abnormality. Reviewed by: Marcelo Ambrosio MD on 04/26/2021 12:26 PM [facility] Approved by: Marcelo Ambrosio MD on 04/26/2021 12:26 PM [facility] Station ID: [id number]
[2021-04-26 15:06] LABS: BASOPHILS % (AUTO) 0.2 %; EOSINOPHILS # (AUTO) 0.1 10^3/uL (0.0-0.7); EOSINOPHILS % (AUTO) 0.9 %; HCT - HEMATOCRIT 44.2 % (42.0-52.0); HGB - HEMOGLOBIN 13.9 g/dL (14.0-18.0); LYMPHOCYTES % (AUTO) 23.1 %; MEAN CORPUSCULAR HEMOGLOBIN 31.1 pg (27.0-31.0); MEAN CORPUSCULAR HGB CONC 31.4 g/dL (32.0-36.0); MEAN CORPUSCULAR VOLUME 98.9 fL (80.0-94.0); MEAN PLATELET VOLUME 10.4 fL (7.4-11.4); MONOCYTES # (AUTO) 0.8 10^3/uL (0.0-1.0); MONOCYTES % (AUTO) 8.8 %; NEUTROPHILS # (AUTO) 5.8 10^3/uL (1.5-6.6); NEUTROPHILS % (AUTO) 66.5 %; PLT - PLATELET COUNT 182 10^3/uL (130-450); RED BLOOD COUNT 4.47 10^6/uL (4.70-6.10); RED CELL DISTRIBUTION WIDTH 13.9 % (12.0-15.0); WHITE BLOOD COUNT 8.7 x10^3/uL (4.8-10.8)
[2021-04-26 15:25] LABS: PARTIAL THROMBOPLASTIN TIME 33.6 secs (24.9-33.3)
[2021-04-26 15:30] LABS: ALBUMIN/GLOBULIN RATIO 1.7 (1.0-2.2); BILIRUBIN,TOTAL 1.1 mg/dL (0.2-1.0); CALCIUM 9.5 mg/dL (8.5-10.3); POTASSIUM 3.5 mmol/L (3.5-5.0); TOTAL PROTEIN 6.3 g/dL (6.7-8.2)
[2021-04-26 15:47] LABS: PT - PROTHROMBIN TIME 11.4 secs (9.9-12.6)
== END 2021-04-26 08:28 | disposition home or self-care (01) ==
LOC: DI.S 08:27
PROVIDERS: ATTEND Internal Medicine
DX: Z01.818 Encounter for other preprocedural examination (principal)
CPT/HCPCS: 36415; 80053; 83540; 84134; 84466; 85025; 85610; 85730

== ENCOUNTER 2021-06-27 01:59 | Outpatient (CLI) | payer MEDICARE, OTHER | END 2021-06-27 02:00 | disposition critical access hospital (66) | LOC: EMS 01:59 | DX: M54.2 Cervicalgia (principal); S00.81XA Abrasion of other part of head, initial encounter; W18.39XA Other fall on same level, initial encounter; Y92.003 Bedroom of unspecified non-institutional (private) residence as the place of occurrence of the external cause | CPT/HCPCS: A0425; A0429 ==

== ENCOUNTER 2021-06-27 03:00 | Emergency (ER) | payer MEDICARE, OTHER ==
--- NOTE | 2021-06-27 03:12 | ED Physician Documentation ---
PD HPI Fall - Stated complaint Stated Complaint: GLF - History obtained from History obtained from: Patient, EMS - History of Present Illness Mechanism of injury: Lost balance Fall distance: Standing position Where injury occurred: Home Timing - onset: Today Injury(ies) location: Head, Neck Quality of pain: Pain Associated symptoms: Neck pain. No: LOC, AMS, Amnesia, Seizures, Ear drainage, Nasal drainage, Weakness, Paresthesias, Dyspnea, Nausea / vomiting Symptoms improve with: Rest Worsens with: Movement, Palpation Contributing factors: No: Anticoagulated Similar symptoms before: Diagnosis (cervical stenosis) Recently seen: Surgery - Additional information Additional information: 85-year-old male who has had surgery for cervical stenosis in April of this year has recently begun rehabilitation and he was at home this evening with his partner when he decided to get up out of bed to go to the bathroom by himself without assistance and he lost his balance fell forward and then backwards has an abrasion to his head and is complaining of neck pain. He states that his neck hurts if he moves it or touches it.He denies any new weakness or paresthesias. He does have weakness to his right arm following surgery. Review of Systems Constitutional: denies: Fever Ears: denies: Ear pain Throat: denies: Sore throat Cardiac: denies: Chest pain / pressure, Palpitations Respiratory: denies: Dyspnea, Cough GI: denies: Abdominal Pain, Vomiting, Diarrhea : denies: Dysuria, Frequency Skin: denies: Rash Musculoskeletal: reports: Neck pain Neurologic: reports: Focal weakness (to the right arm). denies: Generalized weakness, Numbness PD PAST MEDICAL HISTORY - Past Medical History Cardiovascular: Hypertension, High cholesterol Respiratory: None Endocrine/Autoimmune: None GI: Colon polyps : None HEENT: Other Psych: None Musculoskeletal: Osteoarthritis, Chronic back pain Derm: None - Past Surgical History Past Surgical History: Yes General: Colonoscopy Ortho: Rotator cuff repair, Spine surgery - Present Medications Home Medications: Ambulatory Orders Medication Instructions Recorded Confirmed Pravastatin [Pravachol] 40 mg PO DAILY 10/05/15 11/29/15 amLODIPine [Norvasc] 10 mg PO BID 10/05/15 06/27/21 Multivitamin [Multiple Vitamins] 1 tab DAILY 02/20/18 Docusate Sodium 100 mg PO DAILY 07/23/19 06/27/21 Hydrocodone/Acetaminophen 2 each PO Q4HR #20 tablet 07/23/19 [Hydrocodon-Acetaminophn 10325] methocarbamoL [Robaxin] 1 tab QID 08/14/19 08/14/19 Lisinopril [Zestril] 10 mg PO DAILY 06/27/21 06/27/21 - Allergies Allergies/Adverse Reactions: Allergies Allergy/AdvReac Type Severity Reaction Status Date / Time No Known Drug Allergies Allergy Verified 06/27/21 03:07 - Social History Does the pt smoke?: No Smoking Status: Never smoker Does the pt drink ETOH?: No Does the pt have substance abuse?: No - Immunizations Immunizations are current?: Yes - POLST Patient has POLST: No PD ED PE NORMAL - General General: Alert and oriented X 3, No acute distress, Well developed/nourished, Other (85y/o male in a hard collar with abrasion to the anterior scalp. ) - HEENT HEENT: PERRL, EOMI, Other (superficial abrasion to the top/front of the head. ) - Neck Neck: Other (point tenderness to the lower cervical spine improvement with removal of hard collar. C-spine cleared at 0550 collar removed. ) - Cardiac Cardiac: RRR, No murmur - Respiratory Respiratory: No respiratory distress, Clear bilaterally - Abdomen Abdomen: Normal bowel sounds, Soft, Non tender, No organomegaly - Back Back: No CVA TTP, No spinal TTP - Derm Derm: Normal color, Warm and dry, No rash - Extremities Extremities: No deformity, Other (trace edema bilat) - Neuro Neuro: Alert and oriented X 3, proposal analyst 2-12 intact, No motor deficit, No sensory deficit Eye Opening: Spontaneous Motor: Obeys Commands Verbal: Oriented GCS Score: 15 - Psych Psych: Normal mood, Normal affect Results - Vitals Vitals: Vital Signs - 24 hr 06/27/21 06/27/21 06/27/21 03:08 03:33 04:21 Temperature 36.7 C Heart Rate 73 74 79 Respiratory 18 20 14 Rate Blood Pressure 209/95 H 195/79 H 179/77 H O2 Saturation 97 97 96 06/27/21 05:29 Temperature Heart Rate 72 Respiratory 19 Rate Blood Pressure 167/80 H O2 Saturation 97 Oxygen O2 Source Room air - Rads (name of study) CT head Radiology: Prelim report reviewed, EMP read indepedently, See rad report PD MEDICAL DECISION MAKING - ED course Complexity details: reviewed old records, reviewed results, re-evaluated patient, considered differential, d/w patient, d/w family ED course: 85-year-old male with a recent cervical fusion with hardware in place has had a fall in his home today he had some neck pain associated with this and we have been able to obtain a CT scan and CT of the head and neck without evidence of acute changes. He does have extensive hardware in his neck. He has an appoint to see the neurosurgeon in follow-up and these films were specifically requested for this follow-up and they have now been obtained. The patient's significant other and the patient would like to go home to have their follow-up. Departure - Departure Disposition: 01 Home, Self Care Clinical Impression: Cervical strain, acute Qualifiers: Encounter type: initial encounter Qualified Code(s): S16.1XXA - Strain of muscle, fascia and tendon at neck level, initial encounter Concussion Qualifiers: Encounter type: initial encounter Loss of consciousness presence/duration: without LOC Qualified Code(s): S06.0X0A - Concussion without loss of consciousness, initial encounter Condition: Stable Instructions: ED Concussion, ED Sprain Strain Neck Follow-Up: Bryant Arellano MD [Credentialed Staff Provider] - Comments: Manjeet today it looks like you have had a collapse in your home and it reinjured your neck. The images do not show an acute fracture. Reports and the images have been sent to [facility] for your follow-up.
--- OUTSIDE RECORDS SUMMARY | 2021-06-27 03:24 | EXTERNAL MEDICAL SUMMARY RPT | Continuity of Care Document ---
:1935 Author Organization [facility] Address [address] [place] [address] Phone Allergies No information. Encounters No information. Medications No information. 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
[2021-06-27] MEDS ORDERED: KETOROLAC 60 MG/2 ML VIAL IM STA (06:09)
[2021-06-27 06:25] VITALS: BP 171/78
--- NOTE | 2021-06-27 07:42 | CT Report ---
PROCEDURE: HEAD WO INDICATIONS: fall head injury TECHNIQUE: Noncontrast 4.5 mm thick angled axial sections acquired from the foramen magnum to the vertex. For r adiation dose reduction, the following was used: automated exposure control, adjustment of mA and/or kV according to patient size. COMPARISON: None FINDINGS: Image quality: Excellent. CSF spaces: Basal cisterns are patent. No extra-axial fluid collections. The ventricles are symmet zoey in size and shape. Brain: No intracranial bleeds or masses. There is cerebral volume loss for age, with resultant vent ricular and sulcal prominence. There are periventricular and deep white matter chronic small vessel ischemic changes. There is intracranial internal carotid artery and vertebral artery atherosclerosis . Skull and face: Calvarium and visualized facial bones appear intact, without suspicious lesions. Sinuses: Visualized sinuses and mastoids are clear. IMPRESSION: No acute intracranial disease process. Reviewed by: Elaine Hebert MD, PhD on 06/27/2021 7:40 AM PDT Approved by: Elaine Hebert MD, PhD on 06/27/2021 7:40 AM PDT Station ID: [id number]
--- NOTE | 2021-06-27 07:45 | CT Report ---
PROCEDURE: CERVICAL SPINE WO INDICATIONS: fall neck pain TECHNIQUE: Noncontrast 3 mm thick sections acquired from the skull base to the T4 level. Sagittal and coronal r eformats were then constructed. For radiation dose reduction, the following was used: automated exp osure control, adjustment of mA and/or kV according to patient size. COMPARISON: None. FINDINGS: Image quality: Excellent. Bones: Postsurgical changes compatible with C2-T2 posterior fusion and C3-C7 laminectomies. Orthoped ic hardware is intact. No fractures or dislocations. Visualized superior ribs are intact. Spine dege nerative disc disease and facet arthropathy are noted. Soft tissues: Prevertebral soft tissues are normal in thickness. No paravertebral hematomas. No ap ical pneumothoraces. IMPRESSION: No fracture. No acute osseous lesion. If there is continued clinical concern for pathology, then MRI should be considered for further evaluation. Reviewed by: Elaine Hebert MD, PhD on 06/27/2021 7:43 AM PDT Approved by: Elaine Hebert MD, PhD on 06/27/2021 7:43 AM PDT Station ID: [id number]
== END 2021-06-27 06:32 | disposition home or self-care (01) ==
LOC: EDUNIT# → ED 03:00
DX: S00.01XA Abrasion of scalp, initial encounter (principal); S06.0X0A Concussion without loss of consciousness, initial encounter; S16.1XXA Strain of muscle, fascia and tendon at neck level, initial encounter; W18.30XA Fall on same level, unspecified, initial encounter; Y93.89 Activity, other specified; Y92.002 Bathroom of unspecified non-institutional (private) residence as the place of occurrence of the external cause; I10 Essential (primary) hypertension
CPT/HCPCS: 96372; 99284

== ENCOUNTER 2021-07-05 08:00 | Outpatient (CLI) | payer MEDICARE, OTHER ==
--- NOTE | 2021-07-06 11:08 | XRAY Report ---
PROCEDURE: Cervical Spine w/Flex/Ext INDICATIONS: CERVICALGIA/CERVICAL STENOSIS/POST CERVICAL FUSION TECHNIQUE: 4 views of the cervical spine were acquired. COMPARISON: None. FINDINGS: Bones: Postsurgical changes about C2-T2 posterior fusion. Orthopedic hardware is intact. No lucencie s identified at the bone hardware interface. No fractures or dislocations to the T1 level. No suspic ious bony lesions. There is severely reduced range of motion between flexion and extension, with pre served normal bony alignment. Spine degenerative disc disease and facet arthropathy are noted. Soft tissues: Prevertebral soft tissues are normal in thickness. IMPRESSION: 1. Status post C2-T2 posterior fusion. 2. Severely reduced range of motion between flexion and extension with no abnormal vertebral body tra nslation in either the flexed or extended positions. Reviewed by: Elaine Hebert MD, PhD on 07/06/2021 11:06 AM PDT Approved by: Elaine Hebert MD, PhD on 07/06/2021 11:06 AM PDT Station ID: [id number]
== END 2021-07-05 23:59 | disposition home or self-care (01) ==
LOC: DI.S 08:00
PROVIDERS: ATTEND Nurse Practitioner
DX: M48.02 Spinal stenosis, cervical region (principal); M54.2 Cervicalgia; M47.812 Spondylosis without myelopathy or radiculopathy, cervical region; Z98.1 Arthrodesis status

== ENCOUNTER 2021-07-13 15:25 | Outpatient (CLI) | payer MEDICARE, OTHER ==
[2021-07-13 20:13] LABS: CHOL/HDL RATIO 2.3 (<5.0); CHOLESTEROL 167 mg/dL; HDL CHOLESTEROL 73 mg/dL; LDL CHOLESTEROL,CALCULATED 68 mg/dL; LDL/HDL RATIO 0.9 (<3.6); TRIGLYCERIDES 131 mg/dL; VLDL CHOLESTEROL 26 mg/dL
[2021-07-13 21:53] LABS: FOLATE > 49.60 ng/mL (5.90 - >24.8)
== END 2021-07-13 15:26 | disposition home or self-care (01) ==
LOC: LAB.S 15:25
PROVIDERS: ATTEND Nurse Practitioner Family
DX: D64.9 Anemia, unspecified (principal); Z13.6 Encounter for screening for cardiovascular disorders
CPT/HCPCS: 36415; 80061; 82607; 82746; 83721

== ENCOUNTER 2021-07-20 15:57 | Emergency (ER) | payer MEDICARE, OTHER ==
--- NOTE | 2021-07-20 16:18 | ED Physician Documentation ---
PD HPI BACK PAIN - Stated complaint Stated Complaint: GLF,HEADACHE - History obtained from History obtained from: Patient, Family - Additional information Additional information: 86-year-old gentleman who had an extensive spinal fusion in April, with rehab stay. He has been home for a few weeks, had a fall at the interim was seen here. More recently 3 days ago had a fall while going up the wheelchair ramp with his walker. Fell backwards and hit the back of his head. There was no loss of consciousness but he has developed headaches at times severe. He fell again today in the bathroom, simple trip and fall while he was not using his walker. This time he went forward. His neck pain is increased although declines extra pain medication at this point. No other injuries. His shoulders hurt but that is not new per se and his range of motion is not decreased over prior. Noting that he does have pretty bad range of motion in both shoulders. He is okay Review of Systems Constitutional: reports: Reviewed and negative Eyes: reports: Reviewed and negative Ears: reports: Reviewed and negative Nose: reports: Reviewed and negative Throat: reports: Reviewed and negative PD PAST MEDICAL HISTORY - Past Medical History Cardiovascular: Hypertension, High cholesterol Respiratory: None Endocrine/Autoimmune: None GI: Colon polyps : None HEENT: Other Psych: None Musculoskeletal: Osteoarthritis, Chronic back pain Derm: None - Past Surgical History Past Surgical History: Yes General: Colonoscopy Ortho: Rotator cuff repair, Spine surgery - Present Medications Home Medications: Ambulatory Orders Medication Instructions Recorded Confirmed Pravastatin [Pravachol] 40 mg PO DAILY 10/05/15 11/29/15 amLODIPine [Norvasc] 10 mg PO BID 10/05/15 06/27/21 Multivitamin [Multiple Vitamins] 1 tab DAILY 02/20/18 Docusate Sodium 100 mg PO DAILY 07/23/19 06/27/21 Hydrocodone/Acetaminophen 2 each PO Q4HR #20 tablet 07/23/19 [Hydrocodon-Acetaminophn 10-325] methocarbamoL [Robaxin] 1 tab QID 08/14/19 08/14/19 Lisinopril [Zestril] 10 mg PO DAILY 06/27/21 06/27/21 - Allergies Allergies/Adverse Reactions: Allergies Allergy/AdvReac Type Severity Reaction Status Date / Time No Known Drug Allergies Allergy Verified 05/06/22 16:24 - Social History Does the pt smoke?: No Smoking Status: Never smoker Does the pt drink ETOH?: No Does the pt have substance abuse?: No - Immunizations Immunizations are current?: Yes - POLST Patient has POLST: No PD ED PE NORMAL - Vitals Vital signs reviewed: Yes - General General: Alert and oriented X 3, No acute distress - HEENT HEENT: PERRL, EOMI, Other (Extensive surgical incision from the upper C-spine to the upper T-spine that is healing without signs of infection or dehiscence. We will minimal range of motion of the neck due to this. There is an abrasion on the back of the head.) - Extremities Extremities: Other (He cannot range the right shoulder at all actively, but passively he does well. No pain with range of motion on either side.) - Neuro Neuro: Alert and oriented X 3, Normal speech Eye Opening: Spontaneous Motor: Obeys Commands Verbal: Oriented GCS Score: 15 - Psych Psych: Normal mood, Normal affect Results - Vitals Vitals: Vital Signs - 24 hr 07/20/21 16:19 Temperature 97.6 C H Heart Rate 59 L Respiratory 17 Rate Blood Pressure 174/93 H O2 Saturation 100 Oxygen O2 Source Room air - Rads (name of study) CT head cervical spine and thoracic spine Radiology: EMP read contemporaneously PD MEDICAL DECISION MAKING - ED course ED course: 86-year-old gentleman with recurrent falls had a fall injuring the back of his head and his neck and upper back where he has extensive hardware. CT imaging demonstrates no acute findings and he declined any increase in his pain medication although I discussed with him that he can and should add Tylenol to his tramadol regimen. Departure - Departure Disposition: 01 Home, Self Care Clinical Impression: Cervical strain, acute Qualifiers: Encounter type: initial encounter Qualified Code(s): S16.1XXA - Strain of mus laron, fascia and tendon at neck level, initial encounter Back pain Qualifiers: Back pain location: thoracic back pain Chronicity: acute Back pain laterality: midline Qualified Code(s): M54.6 - Pain in thoracic spine Injury of head and neck Qualifiers: Encounter type: initial encounter Qualified Code(s): S09.90XA - Unspecified injury of head, initial encounter Condition: Good Record reviewed to determine appropriate education?: Yes Instructions: ED Head Injury Closed, ED Sprain Strain Neck Comments: CAT scan of your head, neck, and thoracic spine were without evidence of trauma fracture or anything bad. Return for new or worsening symptoms. Given the frequent falls, you may want to look up the sale (senior adult independent living) program which can help with falls prevention. Discharge Date/Time: 07/20/21 18:02
--- OUTSIDE RECORDS SUMMARY | 2021-07-20 16:23 | EXTERNAL MEDICAL SUMMARY RPT | Continuity of Care Document ---
:1935 Author Organization [facility] Address [address] [place] [address] Phone Allergies No information. Encounters No information. Medications No information. 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
[2021-07-20 16:24] VITALS: BP 174/93
--- NOTE | 2021-07-20 17:00 | CT Report ---
PROCEDURE: HEAD WO INDICATIONS: Head, neck, back injury TECHNIQUE: Noncontrast 4.5 mm thick angled axial sections acquired from the foramen magnum to the vertex. For r adiation dose reduction, the following was used: automated exposure control, adjustment of mA and/or kV according to patient size. COMPARISON: 06/27/[address] FINDINGS: No acute intracranial hemorrhage, abnormal extra axial fluid collection, mass effect, or midline shif t. Patent ventricular system and basilar cisterns. Moderate global volume loss and chronic microvascu lar ischemic changes as seen on previous examinations. No suspicious lytic or blastic osseous lesion. No acute osseous finding. No gross orbital abnormality other than intraocular lens replacements. Par anasal sinuses and mastoid air cells are predominantly clear. IMPRESSION: No acute finding. Reviewed by: Thor Colse MD on 07/20/2021 4:59 PM PDT Approved by: Thor Coles MD on 07/20/2021 4:59 PM PDT Station ID: [id number]
--- NOTE | 2021-07-20 17:02 | CT Report ---
PROCEDURE: CERVICAL SPINE WO INDICATIONS: head/neck/back inj TECHNIQUE: Noncontrast 3 mm thick sections acquired from the skull base to the T4 level. Sagittal and coronal r eformats were then constructed. For radiation dose reduction, the following was used: automated exp osure control, adjustment of mA and/or kV according to patient size. COMPARISON: 06/27/2021 FINDINGS: Extensive cervical thoracic posterior fixation changes. No suspicious lucency surrounding hardware to indicate lucency. The hardware appears intact with no evidence of failure or fracture. There is no n ative bone fracture identified. No suspicious lytic or blastic osseous lesion. Extensive degenerative changes are noted. IMPRESSION: No CT evidence of acute traumatic cervical spine injury. Reviewed by: Thor Coles MD on 07/20/2021 5:01 PM PDT Approved by: Thor Coles MD on 07/20/2021 5:01 PM PDT Station ID: [id number]
--- NOTE | 2021-07-20 17:20 | CT Report ---
PROCEDURE: THORACIC SPINE WO INDICATIONS: head/neck/back inj TECHNIQUE: Noncontrast 3 mm thick sections acquired through the region of interest in the thoracic spine. Sagit justin and coronal reformats were then constructed. For radiation dose reduction, the following was used : automated exposure control, adjustment of mA and/or kV according to patient size. COMPARISON: None. FINDINGS: Image quality: Excellent. Bones: Fixation hardware at the cervicothoracic junction is intact. There is normal overall bony ali gnment. No acute vertebral body compression fractures. Subacute appearing anterior right second rib fracture. 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 No suspicious sclerotic or lytic bony lesions. Central spinal canal is of no rmal overall caliber. Mild degenerative changes noted throughout the thoracic spine. Mild facet hyper trophy noted throughout the thoracic spine. Soft tissues: No paravertebral masses or hematomas. Visualized posteromedial lungs appear clear. IMPRESSION: No 6 fracture. No acute osseous lesion. If there is continued clinical concern for pathology, then MR I should be considered for further evaluation. Subacute-appearing, mildly displaced anterior right second rib fracture. Reviewed by: Elaine Hebert MD, PhD on 07/20/2021 5:18 PM PDT Approved by: Elaine Hebert MD, PhD on 07/20/2021 5:18 PM PDT Station ID: [id number]
== END 2021-07-20 18:02 | disposition home or self-care (01) ==
LOC: ED 15:57
DX: S16.1XXA Strain of muscle, fascia and tendon at neck level, initial encounter (principal); M54.6 Pain in thoracic spine; S09.90XA Unspecified injury of head, initial encounter; W19.XXXA Unspecified fall, initial encounter; Y92.002 Bathroom of unspecified non-institutional (private) residence as the place of occurrence of the external cause
CPT/HCPCS: 99282; 99284

== ENCOUNTER 2021-09-05 14:06 | Outpatient (CLI) | payer MEDICARE, OTHER ==
[2021-09-05 19:57] LABS: BASOPHILS % (AUTO) 0.6 %; EOSINOPHILS # (AUTO) 0.1 10^3/uL (0.0-0.7); EOSINOPHILS % (AUTO) 1.3 %; HCT - HEMATOCRIT 41.6 % (42.0-52.0); HGB - HEMOGLOBIN 12.6 g/dL (14.0-18.0); LYMPHOCYTES # (AUTO) 1.5 10^3/uL (1.5-3.5); LYMPHOCYTES % (AUTO) 21.6 %; MEAN CORPUSCULAR HEMOGLOBIN 30.5 pg (27.0-31.0); MEAN CORPUSCULAR HGB CONC 30.3 g/dL (32.0-36.0); MEAN CORPUSCULAR VOLUME 100.7 fL (80.0-94.0); MEAN PLATELET VOLUME 10.7 fL (7.4-11.4); MONOCYTES # (AUTO) 0.7 10^3/uL (0.0-1.0); MONOCYTES % (AUTO) 10.1 %; NEUTROPHILS # (AUTO) 4.5 10^3/uL (1.5-6.6); NEUTROPHILS % (AUTO) 66.3 %; PLT - PLATELET COUNT 208 10^3/uL (130-450); RED BLOOD COUNT 4.13 10^6/uL (4.70-6.10); RED CELL DISTRIBUTION WIDTH 13.2 % (12.0-15.0); WHITE BLOOD COUNT 6.8 x10^3/uL (4.8-10.8)
[2021-09-05 20:15] LABS: ALBUMIN 3.8 g/dL (3.2-5.5); BILIRUBIN,TOTAL 0.7 mg/dL (0.2-1.0); CALCIUM 9.7 mg/dL (8.5-10.3); TOTAL PROTEIN 5.7 g/dL (6.7-8.2)
[2021-09-07 03:09] LABS: RPR Non Reactive (Non Reactive)
== END 2021-09-05 14:07 | disposition home or self-care (01) ==
LOC: LAB.S 14:06
PROVIDERS: ATTEND Nurse Practitioner Family
DX: R41.89 Other symptoms and signs involving cognitive functions and awareness (principal); D64.9 Anemia, unspecified
CPT/HCPCS: 36415; 80053; 84443; 85025; 86592

== ENCOUNTER 2021-09-25 14:10 | Emergency (ER) | payer MEDICARE, OTHER ==
--- NOTE | 2021-09-25 14:39 | ED Physician Documentation ---
History of Present Illness - Stated complaint Stated Complaint: TINGLING IN BODY/HIGH BP - Chief complaint Chief Complaint: Neuro - Additonal information Additional information: 86-year-old male is brought to the emergency department by private vehicle for evaluation of a sudden onset of tingling in both his arms and legs. He was standing at the sink at home when he had a flash of tingling in all his extremities. He denies chest headache or chest pain. No dyspnea. He states that he thought he could not walk but he was ultimately able to. This gentleman presents in a soft cervical collar. He underwent cervical fusion at the C2 level at [facility] in late April. While there his reports that he had 3 CODE BLUE events which were attributed to hypotension/orthostatic hypotension. Because of this they made changes in his blood pressure medications. Specifically he was discontinued from the ramp rail and started on lisinopril. He was also taken off of 5 mg daily amlodipine and placed on amlodipine/Norvasc 2.5 mg daily. He presets to the ED with SBP > 200 Since being discharged from rehab his has noticed that he has had some cognitive decline. He did undergo an MRI September 12 through the [facility], [place], operated by [facility]. 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 There were 3 areas of chronic hemosiderin within portions of the posterior left cerebral hemisphere in the right cerebellum which were nonspecific but thought to be related to hypertension or prior ischemia. Because of the recent cognitive decline he is going to be undergoing neuro psychological testing in the ensuing few weeks Review of Systems Constitutional: denies: Fever, Chills Eyes: reports: Reviewed and negative Ears: reports: Reviewed and negative Cardiac: reports: Reviewed and negative Respiratory: reports: Reviewed and negative GI: reports: Reviewed and negative : reports: Reviewed and negative Skin: reports: Reviewed and negative Musculoskeletal: reports: Neck pain Neurologic: reports: Generalized weakness, Numbness (generalized "tingling"). denies: Focal weakness, Headache, Head injury, LOC Psychiatric: reports: Reviewed and negative PD PAST MEDICAL HISTORY - Past Medical History Cardiovascular: Hypertension, High cholesterol Respiratory: None Endocrine/Autoimmune: None GI: Colon polyps : None HEENT: Other Psych: None Musculoskeletal: Osteoarthritis, Chronic back pain Derm: None - Past Surgical History Past Surgical History: Yes General: Colonoscopy Ortho: Rotator cuff repair, Spine surgery - Present Medications Home Medications: Ambulatory Orders Medication Instructions Recorded Confirmed Pravastatin [Pravachol] 40 mg PO HS 10/05/15 09/25/21 amLODIPine [Norvasc] 2.5 mg PO BID 10/05/15 09/25/21 Multivitamin [Multiple Vitamins] 1 tab ORAL DAILY 02/20/18 09/25/21 Docusate Sodium 100 mg PO DAILY 07/23/19 09/25/21 Lisinopril [Zestril] 20 mg PO DAILY 06/27/21 09/25/21 Acetaminophen [Pain Relief Extra 1,000 mg PO Q6HR PRN 09/25/21 09/25/21 Strength] Aspirin [[place] Aspirin EC] 81 mg PO DAILY 09/25/21 09/25/21 Furosemide [Lasix] 20 mg PO DAILY PRN 09/25/21 09/25/21 Melatonin 5 mg PO HS 09/25/21 09/25/21 Potassium Gluconate 99 mg PO DAILY 09/25/21 09/25/21 Pregabalin [Lyrica] 50 mg PO BID 09/25/21 09/25/21 Psyllium Husk [Psyllium Fiber] 1 cap PO BID 09/25/21 09/25/21 traMADol [Ultram] 50 mg PO Q6HR PRN 09/25/21 09/25/21 - Allergies Allergies/Adverse Reactions: Allergies Allergy/AdvReac Type Severity Reaction Status Date / Time No Known Drug Allergies Allergy Verified 07/20/21 16:24 - Social History Does the pt smoke?: No Smoking Status: Never smoker Does the pt drink ETOH?: No Does the pt have substance abuse?: No - Immunizations Immunizations are current?: Yes - POLST Patient has POLST: No PD ED PE EXPANDED - General General: Alert, No acute distress, Well developed/nourished, Other (Soft cervical collar in place) - Neck Neck: Supple w/out meningeal sx. No: Adenopathy - Cardiac Cardiac: Regular Rate, Radial strong equal, Pedal strong equal, Cap refill < 2 sec. No: Murmur Present - Respiratory Respiratory: Clear to ausultation ivory. No: Distress, Labored - Abdomen Abdomen: Normal Bowel sounds. No: Tender to palpation - Derm Derm: Normal color, Warm and dry - Neuro Neuro: Alert and Oriented X 3, CNII-XII intact. No: Nystagmus, Normal gait (At baseline with walker) - GCS Eye Opening: Spontaneous Motor: Obeys Commands Verbal: Oriented Total: 15 Results - Vitals Vitals: Vital Signs - 24 hr 09/25/21 09/25/21 09/25/21 14:15 14:41 15:15 Temperature 37.0 C Heart Rate 73 68 68 Heart Rate [ 68 Sitting] Heart Rate [ 70 Standing] Heart Rate [ 58 L Supine] Respiratory 18 28 H 22 Rate Blood Pressure 183/65 H 209/78 H 189/89 H Blood Pressure 173/78 H [Sitting] Blood Pressure 189/89 H [Standing] Blood Pressure 156/71 H [Supine] O2 Saturation 97 94 94 Oxygen O2 Source Room air - EKG (time done) 1443 Rate: Rate (enter#) (64) Rhythm: NSR [place]: Other Intervals: LBBB QRS: LVH Ischemia: Normal ST segments Compare to prior EKG: Old EKG unavailable Computer interpretation: Agree with computer - Labs Labs: Laboratory Tests 09/25/21 09/25/21 09/25/21 14:35 14:35 14:35 WBC 7.2 RBC 4.44 L Hgb 13.7 L Hct 43.3 MCV 97.5 H MCH 30.9 MCHC 31.6 L RDW 13.0 Plt Count 212 MPV 9.9 Neut # (Auto) 4.5 Lymph # (Auto) 1.9 Walker # (Auto) 0.6 Eos # (Auto) 0.1 Baso # (Auto) 0.0 Absolute Nucleated RBC 0.00 Nucleated RBC % 0.0 Sodium 142 Potassium 4.2 Chloride 104 Carbon Dioxide 31 Anion Gap 7.0 BUN 23 H Creatinine 1.1 Estimated GFR (MDRD) 63 L Glucose 109 H Calcium 9.9 Total Bilirubin 0.6 AST 23 ALT 21 Alkaline Phosphatase 63 Troponin I High Sens 9.1 Total Protein 6.4 L Albumin 4.1 Globulin 2.3 Albumin/Globulin Ratio 1.8 Lipase 27 - Rads (name of study) cxr Radiology: Final report received (Lungs are clear) PD MEDICAL DECISION MAKING - ED course Complexity details: reviewed results, re-evaluated patient, considered differential, d/w patient, d/w family ED course: 86-year-old male presents emergency department for sudden onset of generalized body tingling that occurred after walking to the kitchen and standing at the sink for short period of time. He recently underwent cervical spine fusion at [facility] in late April. While hospitalized he had 3 CODE BLUE events related to hypotension and subsequently had blood pressure medications changed. 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 He is currently scheduled to undergo neurocognitive evaluation. On presentation to the emergency department he presents with no focal neuro or cerebellar deficits. He is alert and oriented. He does present as modestly hypertensive with initial systolic greater than 200 but it reduced to the 170s and 180s following hydralazine. His EKG was nonischemic and his screening labs also showed no worrisome findings. We did check orthostatic blood pressures and no orthostasis was found. The constellation of symptoms is most consistent likely with a blood pressure change with exertion the we could not confirm that today. Again he presents is modestly hypertensive. His is keeping a record of his blood pressures at home and they have a follow-up appointment with his primary care provider in 48 hours. I suspect blood pressure changes should be made with respect to his medications at that visit. Clinically his symptoms are not consistent with an acute focal neuro or stroke etiology. He is stable for discharge home. Emergent return precautions were discussed for worsening symptoms Departure - Departure Disposition: 01 Home, Self Care Clinical Impression: Tingling Hypertension Qualifiers: Hypertension type: unspecified Qualified Code(s): I10 - Essential (primary) hypertension Condition: Stable Record reviewed to determine appropriate education?: Yes Comments: Manjeet morejon were seen today in the emergency department because after walking into your kitchen this morning and standing at the sink you developed generalized body tingling. You felt that it would be difficult for you to walk but you were able to walk. You do not describe anything that sounds like a stroke such as slurred speech, facial droop or focal weakness in your arms or le gs. Here in the emergency department your screening EKG and labs were all essentially normal. We did check your blood pressures in different positions and did not find that you were orthostatic. Your blood pressure is elevated here in the emergency department and it sounds like with your last hospitalization medication changes were made due to low blood pressures. It is important that you continue to keep a record of your blood pressures at home. When you see your primary care doctor in 2 days they may want to consider adjusting the doses of your medications as your blood pressure is high today. If at any point you develop slurred speech, have sudden weakness in your arms or legs, have any loss of vision, chest pain or difficulty breathing then please return immediately to the ER for second evaluation
[2021-09-25 14:43] LABS: BASOPHILS % (AUTO) 0.6 %; EOSINOPHILS # (AUTO) 0.1 10^3/uL (0.0-0.7); EOSINOPHILS % (AUTO) 1.8 %; HCT - HEMATOCRIT 43.3 % (42.0-52.0); HGB - HEMOGLOBIN 13.7 g/dL (14.0-18.0); LYMPHOCYTES # (AUTO) 1.9 10^3/uL (1.5-3.5); LYMPHOCYTES % (AUTO) 25.8 %; MEAN CORPUSCULAR HEMOGLOBIN 30.9 pg (27.0-31.0); MEAN CORPUSCULAR HGB CONC 31.6 g/dL (32.0-36.0); MEAN CORPUSCULAR VOLUME 97.5 fL (80.0-94.0); MEAN PLATELET VOLUME 9.9 fL (7.4-11.4); MONOCYTES # (AUTO) 0.6 10^3/uL (0.0-1.0); MONOCYTES % (AUTO) 8.7 %; NEUTROPHILS # (AUTO) 4.5 10^3/uL (1.5-6.6); NEUTROPHILS % (AUTO) 62.7 %; PLT - PLATELET COUNT 212 10^3/uL (130-450); RED BLOOD COUNT 4.44 10^6/uL (4.70-6.10); WHITE BLOOD COUNT 7.2 x10^3/uL (4.8-10.8)
[2021-09-25] MEDS ORDERED: hydrALAZINE INJ 20 MG/ML VIAL IVP STA (14:47)
[2021-09-25 15:02] LABS: ALBUMIN 4.1 g/dL (3.2-5.5); ALBUMIN/GLOBULIN RATIO 1.8 (1.0-2.2); BILIRUBIN,TOTAL 0.6 mg/dL (0.2-1.0); CALCIUM 9.9 mg/dL (8.5-10.3); CREATININE 1.1 mg/dL (0.6-1.2); POTASSIUM 4.2 mmol/L (3.5-5.0); TOTAL PROTEIN 6.4 g/dL (6.7-8.2)
--- NOTE | 2021-09-25 15:17 | XRAY Report ---
PROCEDURE: Chest 1 View X-Ray INDICATIONS: Chest Pain TECHNIQUE: One view of the chest was acquired. COMPARISON: Chest x-ray 04/26/2021 FINDINGS: Surgical changes and devices: Cervical fixation plate and screws. Lungs and pleura: There is lucency below the left hemidiaphragm. It is noted that colonic interpositi on is present within this region on prior exams. Mediastinum: Mediastinal contours appear normal. Heart size is normal. Bones and chest wall: No suspicious bony lesions. Overlying soft tissues appear unremarkable. IMPRESSION: Lungs are clear. Lucency below the left hemidiaphragm. It is noted that there is colonic interposition within this reg ion. However, it appears slightly more prominent which may be related to positioning. However, free a ir cannot be definitively excluded. Decubitus exam is recommended for further evaluation. Reviewed by: Gerri Gilmore MD on 09/25/2021 3:15 PM PDT Approved by: Gerri Gilmore MD on 09/25/2021 3:15 PM PDT Station ID: [id number]
[2021-09-25 16:01] VITALS: BP 177/71
== END 2021-09-25 16:16 | disposition home or self-care (01) ==
LOC: ED 14:10
DX: R20.2 Paresthesia of skin (principal); I10 Essential (primary) hypertension
CPT/HCPCS: 36415; 80053; 83690; 84484; 85025; 93005; 96374; 99283

== ENCOUNTER 2021-10-13 20:29 | Emergency (ER) | payer MEDICARE, OTHER ==
[2021-10-13 22:20] LABS: BASOPHILS % (AUTO) 0.5 %; EOSINOPHILS # (AUTO) 0.3 10^3/uL (0.0-0.7); EOSINOPHILS % (AUTO) 3.9 %; HCT - HEMATOCRIT 39.7 % (42.0-52.0); HGB - HEMOGLOBIN 12.5 g/dL (14.0-18.0); LYMPHOCYTES # (AUTO) 1.8 10^3/uL (1.5-3.5); MEAN CORPUSCULAR HGB CONC 31.5 g/dL (32.0-36.0); MEAN CORPUSCULAR VOLUME 95.2 fL (80.0-94.0); MONOCYTES # (AUTO) 0.8 10^3/uL (0.0-1.0); MONOCYTES % (AUTO) 10.5 %; PLT - PLATELET COUNT 175 10^3/uL (130-450); RED BLOOD COUNT 4.17 10^6/uL (4.70-6.10); RED CELL DISTRIBUTION WIDTH 13.3 % (12.0-15.0)
[2021-10-13 22:33] LABS: ALBUMIN 4.1 g/dL (3.2-5.5); ALBUMIN/GLOBULIN RATIO 1.7 (1.0-2.2); BILIRUBIN,TOTAL 0.7 mg/dL (0.2-1.0); CALCIUM 9.8 mg/dL (8.5-10.3); CREATININE 1.3 mg/dL (0.6-1.2); POTASSIUM 4.4 mmol/L (3.5-5.0); TOTAL PROTEIN 6.5 g/dL (6.7-8.2)
[2021-10-13] MEDS ORDERED: SOAP SUDS ENEMA 1 EACH RC ONE (22:36)
--- NOTE | 2021-10-14 01:15 | CT Report ---
PROCEDURE: Abdomen/Pelvis W INDICATIONS: Concern brennon-anal abscess CONTRAST: IV CONTRAST: Optiray 320 ml: 100 PO CONTRAST: *NO PO CONTRAST TECHNIQUE: After the administration of contrast, 5 mm thick sections acquired from the diaphragms to the symphy sis. 5 mm thick coronal and sagittal reformats were acquired. For radiation dose reduction, the fol lowing was used: automated exposure control, adjustment of mA and/or kV according to patient size. COMPARISON: None. FINDINGS: Image quality: Excellent. ABDOMEN: Large rectal stool ball. Mild rectal wall thickening and adjacent fat stranding. Large volume of form ed stool throughout the remaining colon. No acute finding of the solid abdominal visceral structures. Aortic atherosclerosis. Urinary bladder normal. Mild prostatomegaly. No acute or suspicious osseous lesion. IMPRESSION: Mild stercoral colitis and possible rectal fecal impaction. No perianal abscess. Reviewed by: Thor Coles MD on 10/14/2021 1:14 AM PDT Approved by: Thor Coles MD on 10/14/2021 1:14 AM PDT Station ID: [id number]
[2021-10-14] MEDS ORDERED: MAG HYDROX/AL HYDROX/SIMETH 30 ML UDC PO STA (01:18)
[2021-10-14] MEDS ORDERED: MINERAL OIL ENEMA 133 ML BOTTLE RC STA (01:30)
--- NOTE | 2021-10-14 02:36 | ED Physician Documentation ---
PD HPI ABD PAIN - Stated complaint Stated Complaint: MALE GI - Chief complaint Chief Complaint: General - Additional information Additional information: Patient is 86-year-old male presenting to the emergency department with complaint for abdominal pain and diarrhea. Reports greater than 1 week since his last bowel movement. Reports feels as though he needs to use the restroom however has been having multiple episodes of uncontrolled watery diarrhea at home. Endorses for some abdominal pain. Denies any changes in medication or diet. Did recently undergo a cervical spinal fusion surgery reports is not currently taking any narcotic pain medication associated with this. Review of Systems Ten Systems: 10 systems reviewed and negative Constitutional: denies: Fever Eyes: denies: Loss of vision Ears: denies: Loss of hearing Nose: denies: Rhinorrhea / runny nose Throat: denies: Dental pain / toothache Cardiac: denies: Chest pain / pressure GI: reports: Abdominal Pain, Constipation, Diarrhea PD PAST MEDICAL HISTORY - Past Medical History Past Medical History: Yes Cardiovascular: Hypertension, High cholesterol Respiratory: None Neuro: CVA Endocrine/Autoimmune: None GI: Colon polyps : None HEENT: Other Psych: None Musculoskeletal: Osteoarthritis, Chronic back pain Derm: None - Past Surgical History Past Surgical History: Yes General: Colonoscopy Ortho: Rotator cuff repair, Spine surgery - Present Medications Home Medications: Ambulatory Orders Medication Instructions Recorded Confirmed Pravastatin [Pravachol] 40 mg PO HS 10/05/15 09/25/21 amLODIPine [Norvasc] 2.5 mg PO BID 10/05/15 09/25/21 Multivitamin [Multiple Vitamins] 1 tab ORAL DAILY 02/20/18 09/25/21 Docusate Sodium 100 mg PO DAILY 07/23/19 09/25/21 Lisinopril [Zestril] 20 mg PO DAILY 06/27/21 09/25/21 Acetaminophen [Pain Relief Extra 1,000 mg PO Q6HR PRN 09/25/21 09/25/21 Strength] Aspirin [[place] Aspirin EC] 81 mg PO DAILY 09/25/21 09/25/21 Furosemide [Lasix] 20 mg PO DAILY PRN 09/25/21 09/25/21 Melatonin 5 mg PO HS 09/25/21 09/25/21 Potassium Gluconate 99 mg PO DAILY 09/25/21 09/25/21 Pregabalin [Lyrica] 50 mg PO BID 09/25/21 09/25/21 Psyllium Husk [Psyllium Fiber] 1 cap PO BID 09/25/21 09/25/21 traMADol [Ultram] 50 mg PO Q6HR PRN 09/25/21 09/25/21 Docusate Sodium 100Mg Capsule 100 mg PO DAILY #30 mg pe 10/14/21 [Colace 100Mg Capsule] polyethylene glycoL 3350 [Miralax] 17 gm PO DAILY PRN #1 ml 10/14/21 - Allergies Allergies/Adverse Reactions: Allergies Allergy/AdvReac Type Severity Reaction Status Date / Time No Known Drug Allergies Allergy Verified 07/20/21 16:24 - Social History Does the pt smoke?: No Smoking Status: Never smoker Does the pt drink ETOH?: No Does the pt have substance abuse?: No - Immunizations Immunizations are current?: Yes - POLST Patient has POLST: No PD ED PE NORMAL - General General: Alert and oriented X 3 - HEENT HEENT: Atraumatic - Neck Neck: Supple, no meningeal sign, Other (Postoperative collar in place.) - Cardiac Cardiac: RRR - Respiratory Respiratory: No respiratory distress - Abdomen Abdomen: Normal bowel sounds, Non tender - Male 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 - Rectal Rectal: Other (Fecal impaction with soft light brown stool.) - Derm Derm: Normal color - Extremities Extremities: No deformity - Neuro Neuro: Alert and oriented X 3, degreasing solution reclaimer 2-12 intact, No motor deficit, No sensory deficit, Normal speech Results - Vitals Vitals: Vital Signs - 24 hr 10/13/21 10/13/21 10/14/21 20:47 23:12 00:00 Temperature 36.2 C L Heart Rate 68 61 63 Respiratory 16 17 16 Rate Blood Pressure 134/62 H 194/80 H 169/77 H O2 Saturation 97 100 100 Oxygen O2 Source Room air - Labs Labs: Laboratory Tests 10/13/21 10/13/21 10/13/21 22:14 22:14 22:14 WBC 8.0 RBC 4.17 L Hgb 12.5 L Hct 39.7 L MCV 95.2 H MCH 30.0 MCHC 31.5 L RDW 13.3 Plt Count 175 MPV 10.0 Neut # (Auto) 5.0 Lymph # (Auto) 1.8 [place] # (Auto) 0.8 Eos # (Auto) 0.3 Baso # (Auto) 0.0 Absolute Nucleated RBC 0.00 Nucleated RBC % 0.0 Sodium 139 Potassium 4.4 Chloride 100 L Carbon Dioxide 31 Anion Gap 8.0 BUN 30 H Creatinine 1.3 H Estimated GFR (MDRD) 52 L Glucose 93 Lactic Acid 0.8 Calcium 9.8 Total Bilirubin 0.7 AST 20 ALT 18 Alkaline Phosphatase 55 Total Protein 6.5 L Albumin 4.1 Globulin 2.4 Albumin/Globulin Ratio 1.7 Lipase 24 PD MEDICAL DECISION MAKING - ED course Complexity details: reviewed results, re-evaluated patient, d/w patient, d/w family ED course: Patient is 86-year-old male presenting to the emergency department with abdominal pain, uncontrolled diarrhea and feelings of constipation. Afebrile, he medically stable on arrival to the emergency department. Some suprapubic tenderness on exam and obvious fecal impaction. Manual disimpaction was performed in the emergency department. CT of the abdomen pelvis. Demonstrated persistent fecal ball with steroid of colitis. No elevated white blood cell count.Given 2 enemas in the emergency department with significant symptomatic relief and positive large volume bowel movement. At this time will discharge with medications to help as bowel regimen including MiraLAX and do Colace to be taken at home. Encourage careful follow-up with primary care and to return to the emergency department for new or worsening symptoms. Departure - Departure Disposition: 01 Home, Self Care Clinical Impression: Constipation Instructions: ED Constipation Prescriptions: Docusate Sodium 100Mg Capsule [Colace 100Mg Capsule] 100 mg PO DAILY #30 mg pe polyethylene glycoL 3350 [Miralax] 17 gm PO DAILY PRN #1 ml PRN Reason: Constipation Comments: Thank you for allowing us to care for you today at [facility]. I have sent some medications to [facility] to help with any ongoing constipation. Would like you to drink plenty of fluids and increase your intake and fiber full fluids over the course of the next few days. Please make a follow-up appoint with your primary care doctor soon as possible. If you have persistent symptoms including any worsening pain, recurrent constipation or rectal bleeding please return to the emergency department.
[2021-10-14 02:57] VITALS: BP 147/76
== END 2021-10-14 02:56 | disposition home or self-care (01) ==
LOC: ED 20:29
DX: K59.00 Constipation, unspecified (principal)
CPT/HCPCS: 36415; 74177; 80053; 83605; 83690; 85025; 99283; 99284; A9270; Q9967

== ENCOUNTER 2021-11-15 10:51 | Outpatient (CLI) | payer MEDICARE, OTHER ==
[2021-11-15 14:34] LABS: BASOPHILS # (AUTO) 0.1 10^3/uL (0.0-0.1); BASOPHILS % (AUTO) 0.9 %; EOSINOPHILS # (AUTO) 0.2 10^3/uL (0.0-0.7); EOSINOPHILS % (AUTO) 2.6 %; HCT - HEMATOCRIT 40.8 % (42.0-52.0); HGB - HEMOGLOBIN 12.9 g/dL (14.0-18.0); LYMPHOCYTES # (AUTO) 1.5 10^3/uL (1.5-3.5); LYMPHOCYTES % (AUTO) 21.4 %; MEAN CORPUSCULAR HEMOGLOBIN 30.6 pg (27.0-31.0); MEAN CORPUSCULAR HGB CONC 31.6 g/dL (32.0-36.0); MEAN CORPUSCULAR VOLUME 96.9 fL (80.0-94.0); MEAN PLATELET VOLUME 10.4 fL (7.4-11.4); MONOCYTES # (AUTO) 0.7 10^3/uL (0.0-1.0); MONOCYTES % (AUTO) 10.1 %; NEUTROPHILS # (AUTO) 4.5 10^3/uL (1.5-6.6); NEUTROPHILS % (AUTO) 64.7 %; PLT - PLATELET COUNT 193 10^3/uL (130-450); RED BLOOD COUNT 4.21 10^6/uL (4.70-6.10); RED CELL DISTRIBUTION WIDTH 14.2 % (12.0-15.0)
== END 2021-11-15 10:52 | disposition home or self-care (01) ==
LOC: LAB.S 10:51
PROVIDERS: ATTEND Nurse Practitioner Family
DX: D64.9 Anemia, unspecified (principal)
CPT/HCPCS: 36415; 85025

== ENCOUNTER 2021-12-25 10:59 | Emergency (ER) | payer MEDICARE, OTHER ==
[2021-12-25 11:32] VITALS: BP 187/71
[2021-12-25] MEDS ORDERED: traMADol 50 MG TABLET PO STA (13:19)
--- NOTE | 2021-12-25 13:23 | ED Physician Documentation ---
PD CANO HEENT - Stated complaint Stated Complaint: RT EAR PX - Chief complaint Chief Complaint: Heent - History obtained from History obtained from: Patient, Family - Additional information Additional information: 86-year-old gentleman presents with his partner for uncontrolled pain of the right ear canal. It started 4 weeks ago. He is seen by his primary care physician as well as an ENT specialist and it sounds like per their description he has an infected cyst of the right ear canal scheduled for incision and drainage or some other operative repair under local anesthetic in 9 days. In the meantime his pain is uncontrolled and request something for pain. Specifically he has had tramadol in the past without untoward side effects or lack of pain control and request this. He has no other complaints. Review of Systems Constitutional: reports: Reviewed and negative Eyes: reports: Reviewed and negative PD PAST MEDICAL HISTORY - Past Medical History Cardiovascular: Hypertension, High cholesterol Respiratory: None Neuro: CVA Endocrine/Autoimmune: None GI: Colon polyps : None HEENT: Other Psych: None Musculoskeletal: Osteoarthritis, Chronic back pain Derm: None - Past Surgical History Past Surgical History: Yes General: Colonoscopy Ortho: Rotator cuff repair, Spine surgery - Present Medications Home Medications: Ambulatory Orders Medication Instructions Recorded Confirmed Pravastatin [Pravachol] 40 mg PO HS 10/05/15 09/25/21 amLODIPine [Norvasc] 2.5 mg PO BID 10/05/15 09/25/21 Multivitamin [Multiple Vitamins] 1 tab ORAL DAILY 02/20/18 09/25/21 Docusate Sodium 100 mg PO DAILY 07/23/19 09/25/21 Lisinopril [Zestril] 20 mg PO DAILY 06/27/21 09/25/21 Acetaminophen [Pain Relief Extra 1,000 mg PO Q6HR PRN 09/25/21 09/25/21 Strength] Aspirin [[place] Aspirin EC] 81 mg PO DAILY 09/25/21 09/25/21 Furosemide [Lasix] 20 mg PO DAILY PRN 09/25/21 09/25/21 Melatonin 5 mg PO HS 09/25/21 09/25/21 Potassium Gluconate 99 mg PO DAILY 09/25/21 09/25/21 Pregabalin [Lyrica] 50 mg PO BID 09/25/21 09/25/21 Psyllium Husk [Psyllium Fiber] 1 cap PO BID 09/25/21 09/25/21 traMADol [Ultram] 50 mg PO Q6HR PRN 09/25/21 09/25/21 Docusate Sodium 100Mg Capsule 100 mg PO DAILY #30 mg pe 10/14/21 [Colace 100Mg Capsule] polyethylene glycoL 3350 [Miralax] 17 gm PO DAILY PRN #1 ml 10/14/21 traMADol [Ultram] 50 mg PO Q4-6H PRN #30 tablet 12/25/21 - Allergies Allergies/Adverse Reactions: Allergies Allergy/AdvReac Type Severity Reaction Status Date / Time No Known Drug Allergies Allergy Verified 12/25/21 11:32 - Social History Does the pt smoke?: No Smoking Status: Never smoker Does the pt drink ETOH?: No Does the pt have substance abuse?: No - Immunizations Immunizations are current?: Yes - POLST Patient has POLST: No PD ED PE NORMAL - Vitals Vital signs reviewed: Yes - General General: Alert and oriented X 3, No acute distress - HEENT HEENT: PERRL, EOMI, Other (There is what appears to be an infected cystic lesion at the inferior part of the right ear canal without occlusion of the canal. No surrounding cellulitis or mastoid tenderness.) - Neuro Neuro: Alert and oriented X 3, Normal speech Results - Vitals Vitals: Vital Signs - 24 hr 12/25/21 11:28 Temperature 36.1 C L Heart Rate 52 L Respiratory 18 Rate Blood Pressure 187/71 H O2 Saturation 100 Oxygen O2 Source Room air Departure - Departure Disposition: 01 Home, Self Care Clinical Impression: Cyst of ear canal Condition: Good Record reviewed to determine appropriate education?: Yes Prescriptions: traMADol [Ultram] 50 mg PO Q4-6H PRN #30 tablet PRN Reason: Pain Comments: I sent your prescription electronically to the [facility] in [place]. Follow-up with the surgeon as scheduled, continue current therapies as previously recommended. Return for new or worsening symptoms. I am prescribing a short course of narcotic pain medication for you. These are potentially dangerous and addictive medications that should be used carefully. These medications may constipate you. Take an [id number] stool softener (docusate) twice daily with plenty of water while taking these medications. If you go 24 hours without a bowel movement, take [id number] miralax, per package instructions. Do not drink or drive while taking these medications. If you received narcotic or sedating medications while in the emergency department, do not drive for 24 hours. Store this medication in a safe, secure place and out of reach of children. It is a violation of federal law to give or sell this medication to another person or to use in a manner other than prescribed. The ED will not refill narcotic prescriptions, including prescriptions lost or stolen. To dispose of unwanted medications: 1. [facility] at [address] in [place] has a medication drop box. They accept prescription medications (in pill form) Friday through Friday 9:00 a.m. to 5:00 p.m. 2. [facility] [employer] [facility] accepts prescription medications (in pill form only) for disposal year round. Call for more info rmation. 3. Contact the [facility] for the next [facility] sponsored prescription drug collection event. , [phone], or [phone]; Note that many narcotic pain relievers also contain Tylenol/acetaminophen. Please ensure that your total dose of acetaminophen from all sources does not exceed 3 g (3000 mg) per day.
== END 2021-12-25 13:33 | disposition home or self-care (01) ==
LOC: ED 10:59
DX: Q18.1 Preauricular sinus and cyst (principal); H92.01 Otalgia, right ear; I10 Essential (primary) hypertension; Z79.82 Long term (current) use of aspirin
CPT/HCPCS: 99282; A9270

== ENCOUNTER 2022-01-27 17:44 | Outpatient (CLI) | payer MEDICARE, OTHER | END 2022-01-27 23:59 | disposition critical access hospital (66) | LOC: EMS 17:44 | DX: R53.1 Weakness (principal); R29.6 Repeated falls ==

== ENCOUNTER 2022-01-27 18:05 | Emergency (ER) | payer MEDICARE, OTHER ==
[2022-01-27 18:31] LABS: BASOPHILS % (AUTO) 0.1 %; EOSINOPHILS % (AUTO) 0.1 %; HCT - HEMATOCRIT 41.2 % (42.0-52.0); HGB - HEMOGLOBIN 12.9 g/dL (14.0-18.0); LYMPHOCYTES # (AUTO) 0.6 10^3/uL (1.5-3.5); LYMPHOCYTES % (AUTO) 8.1 %; MEAN CORPUSCULAR HEMOGLOBIN 30.6 pg (27.0-31.0); MEAN CORPUSCULAR HGB CONC 31.3 g/dL (32.0-36.0); MEAN CORPUSCULAR VOLUME 97.9 fL (80.0-94.0); MONOCYTES % (AUTO) 14.3 %; NEUTROPHILS # (AUTO) 5.5 10^3/uL (1.5-6.6); NEUTROPHILS % (AUTO) 76.8 %; PLT - PLATELET COUNT 161 10^3/uL (130-450); RED BLOOD COUNT 4.21 10^6/uL (4.70-6.10); RED CELL DISTRIBUTION WIDTH 14.5 % (12.0-15.0); WHITE BLOOD COUNT 7.2 x10^3/uL (4.8-10.8)
[2022-01-27 18:41] LABS: ALBUMIN 3.8 g/dL (3.2-5.5); ALBUMIN/GLOBULIN RATIO 1.5 (1.0-2.2); BILIRUBIN,TOTAL 0.4 mg/dL (0.2-1.0); CALCIUM 9.4 mg/dL (8.5-10.3); POTASSIUM 3.9 mmol/L (3.5-5.0); TOTAL PROTEIN 6.4 g/dL (6.7-8.2)
[2022-01-27 20:44] LABS: BILIRUBIN,URINE NEGATIVE (NEGATIVE); GLUCOSE, URINE (UA) NEGATIVE (NEGATIVE); KETONES,URINE (UA) NEGATIVE (NEGATIVE); LEUKOCYTE ESTERASE, URINE NEGATIVE (NEGATIVE); NITRITE,URINE NEGATIVE (NEGATIVE); OCCULT BLOOD,URINE NEGATIVE (NEGATIVE); PROTEIN,URINE NEGATIVE (NEGATIVE); UROBILINOGEN,URINE 0.2 (NORMAL) E.U./dL (NORMAL)
[2022-01-27 20:49] LABS: CLARITY,URINE CLEAR (CLEAR)
--- NOTE | 2022-01-27 21:16 | ED Physician Documentation ---
History of Present Illness - Stated complaint Stated Complaint: WEAKNESS/FALLS - Chief complaint Chief Complaint: Trauma Ch/Bk - History obtained from History obtained from: Patient, Family () - Additonal information Additional information: 86yM with pmh frequent falls, ambulatory with walker at baseline, p/w sore throat, cough productive of yellow sputum, rhinorrhea, congestion, sneezing over the past day or so, along with increased weakness of extremities. patient has had 2 controlled falls today both in transit related to bathroom. denies injury from this. denies HT. states he simply slid down. Review of Systems Ten Systems: 10 systems reviewed and negative Constitutional: reports: Chills, Myalgias, Fatigue Nose: reports: Rhinorrhea / runny nose, Congestion Throat: reports: Sore throat Respiratory: reports: Cough. denies: Dyspnea GI: denies: Nausea Neurologic: reports: Generalized weakness PD PAST MEDICAL HISTORY - Past Medical History Cardiovascular: Hypertension, High cholesterol Respiratory: None Neuro: CVA Endocrine/Autoimmune: None GI: Colon polyps : None HEENT: Other Psych: None Musculoskeletal: Osteoarthritis, Chronic back pain Derm: None - Past Surgical History Past Surgical History: Yes General: Colonoscopy Ortho: Rotator cuff repair, Spine surgery - Present Medications Home Medications: Ambulatory Orders Medication Instructions Recorded Confirmed Pravastatin [Pravachol] 40 mg PO HS 10/05/15 09/25/21 amLODIPine [Norvasc] 2.5 mg PO BID 10/05/15 09/25/21 Multivitamin [Multiple Vitamins] 1 tab ORAL DAILY 02/20/18 09/25/21 Docusate Sodium 100 mg PO DAILY 07/23/19 09/25/21 Lisinopril [Zestril] 20 mg PO DAILY 06/27/21 09/25/21 Acetaminophen [Pain Relief Extra 1,000 mg PO Q6HR PRN 09/25/21 09/25/21 Strength] Aspirin [[place] Aspirin EC] 81 mg PO DAILY 09/25/21 09/25/21 Furosemide [Lasix] 20 mg PO DAILY PRN 09/25/21 09/25/21 Melatonin 5 mg PO HS 09/25/21 09/25/21 Potassium Gluconate 99 mg PO DAILY 09/25/21 09/25/21 Pregabalin [Lyrica] 50 mg PO BID 09/25/21 09/25/21 Psyllium Husk [Psyllium Fiber] 1 cap PO BID 09/25/21 09/25/21 traMADol [Ultram] 50 mg PO Q6HR PRN 09/25/21 09/25/21 Docusate Sodium 100Mg Capsule 100 mg PO DAILY #30 mg pe 10/14/21 [Colace 100Mg Capsule] polyethylene glycoL 3350 [Miralax] 17 gm PO DAILY PRN #1 ml 10/14/21 traMADol [Ultram] 50 mg PO Q4-6H PRN #30 tablet 12/25/21 - Allergies Allergies/Adverse Reactions: Allergies Allergy/AdvReac Type Severity Reaction Status Date / Time No Known Drug Allergies Allergy Verified 12/25/21 11:32 - Social History Does the pt smoke?: No Smoking Status: Never smoker Does the pt drink ETOH?: No Does the pt have substance abuse?: No - Immunizations Immunizations are current?: Yes - POLST Patient has POLST: No PD ED PE NORMAL - Vitals Vital signs reviewed: Yes - General General: Alert and oriented X 3, No acute distress, Well developed/nourished - HEENT HEENT: Atraumatic, PERRL, EOMI, Moist mucous membranes, Pharynx benign, Other (coughing up yellow sputum) - Neck Neck: Supple, no meningeal sign - Cardiac Cardiac: RRR - Respiratory Respiratory: No respiratory distress, Clear bilaterally - Abdomen Abdomen: Non tender, Non distended - Derm Derm: Normal color, Warm and dry - Extremities Extremities: No deformity, Other (general global weakness - ambulatory with assistance at baseline) - Neuro Neuro: Alert and oriented X 3, No motor deficit, No sensory deficit - Psych Psych: Normal mood, Normal affect Results - Vitals Vitals: Oxygen O2 Source Room air - Labs Labs: Laboratory Tests 01/27/22 01/27/22 01/27/22 18:22 18:22 20:34 WBC 7.2 RBC 4.21 L Hgb 12.9 L Hct 41.2 L MCV 97.9 H MCH 30.6 MCHC 31.3 L RDW 14.5 Plt Count 161 MPV 10.0 Neut # (Auto) 5.5 Lymph # (Auto) 0.6 L [place] # (Auto) 1.0 Eos # (Auto) 0.0 Baso # (Auto) 0.0 Absolute Nucleated RBC 0.00 Nucleated RBC % 0.0 Sodium 136 Potassium 3.9 Chloride 101 Carbon Dioxide 28 Anion Gap 7.0 BUN 22 H Creatinine 1.0 Estimated GFR (MDRD) 71 L Glucose 116 H Calcium 9.4 Total Bilirubin 0.4 AST 23 ALT 27 Alkaline Phosphatase 56 Total Protein 6.4 L Albumin 3.8 Globulin 2.6 Albumin/Globulin Ratio 1.5 Lipase 27 Urine Color YELLOW Urine Clarity CLEAR Urine pH 7.0 Ur Specific [place] 1.020 Urine Protein NEGATIVE Urine Glucose (UA) NEGATIVE Urine Ketones NEGATIVE Urine Occult Blood NEGATIVE Urine Nitrite NEGATIVE Urine Bilirubin NEGATIVE Urine Urobilinogen 0.2 (NORMAL) Ur Leukocyte Esterase NEGATIVE Ur Microscopic Review NOT INDICATED Urine Culture Comments NOT INDICATED Nasal Adenovirus (PCR) Nasal B. parapertussis DNA (PCR) Nasal Coronavir 229E PCR Nasal Coronavir HKU1 PCR Nasal Coronavir NL63 PCR Nasal Coronavir OC43 PCR Nasal Enterovir/Rhinovir PCR Nasal Influenza A H3 PCR Nasal Influenza B PCR Nasal Parainfluen 1 PCR Nasal Parainfluen 2 PCR Nasal Parainfluen 3 PCR Nasal Parainfluen 4 PCR Nasal RSV (PCR) Nasal B.pertussis DNA PCR Nasal C.pneumoniae (PCR) Etienne Human Metapneumo PCR Nasal M.pneumoniae (PCR) Nasal SARS-CoV-2 (PCR) 01/27/22 21:12 WBC RBC Hgb Hct MCV MCH MCHC RDW Plt Count MPV Neut # (Auto) Lymph # (Auto) [place] # (Auto) Eos # (Auto) Baso # (Auto) Absolute Nucleated RBC Nucleated RBC % Sodium Potassium Chloride Carbon Dioxide Anion Gap BUN Creatinine Estimated GFR (MDRD) Glucose Calcium Total Bilirubin AST ALT Alkaline Phosphatase Total Protein Albumin Globulin Albumin/Globulin Ratio Lipase Urine Color Urine Clarity Urine pH Ur Specific [place] Urine Protein Urine Glucose (UA) Urine Ketones Urine Occult Blood Urine Nitrite Urine Bilirubin Urine Urobilinogen Ur Leukocyte Esterase Ur Microscopic Review Urine Culture Comments Nasal Adenovirus (PCR) NOT DETECTED Nasal B. parapertussis DNA (PCR) NOT DETECTED Nasal Coronavir 229E PCR NOT DETECTED Nasal Coronavir HKU1 PCR NOT DETECTED Nasal Coronavir NL63 PCR NOT DETECTED Nasal Coronavir OC43 PCR NOT DETECTED Nasal Enterovir/Rhinovir PCR NOT DETECTED Nasal Influenza A H3 PCR DETECTED A Nasal Influenza B PCR NOT DETECTED Nasal Parainfluen 1 PCR NOT DETECTED Nasal Parainfluen 2 PCR NOT DETECTED Nasal Parainfluen 3 PCR NOT DETECTED Nasal Parainfluen 4 PCR NOT DETECTED Nasal RSV (PCR) NOT DETECTED Nasal B.pertussis DNA PCR NOT DETECTED Nasal C.pneumoniae (PCR) NOT DETECTED Etienne Human Metapneumo PCR NOT DETECTED Nasal M.pneumoniae (PCR) NOT DETECTED Nasal SARS-CoV-2 (PCR) NOT DETECTED PD MEDICAL DECISION MAKING - ED course ED course: Labwork without acute concerning findings. patient has asymptomatic htn in ED and per 's report has had ongoing htn for a long time that pcp at [facility], Ariana Montano, has been working to manage. Discussed that he will need to f/u with them this week. Shared decision made with patient and to discharge home with understanding that he will return for any new or worsening symptoms. Note: called to discuss RVP results indicating influenza and reported to me he had fallen again and was sent to hospital at [facility], medically stable and hoping to be discharged tomorrow. Departure - Departure Disposition: 01 Home, Self Care Clinical Impression: Viral upper respiratory illness Condition: Stable Instructions: ED Viral Syndrome Comments: You were seen in the ED for viral upper respiratory illness and weakness that is likely related to illness. Your labwork uncovered no emergent issues. We sent a respiratory nasal sample for testing and will call with results. Please follow up with your primary care provider Isaiah Montano at [facility]. Return to the ED for any new or worsening symptoms or other concerns. Discharge Date/Time: 01/27/22 21:53
[2022-01-27 21:53] VITALS: BP 211/86
[2022-01-28 01:34] LABS: CORONAVIRUS 229E-RESP PCR NOT DETECTED; CORONAVIRUS HKU1-RESP PCR NOT DETECTED; CORONAVIRUS NL63-RESP PCR NOT DETECTED; CORONAVIRUS OC43-RESP PCR NOT DETECTED; HUMAN METAPNEUMOVIRUS NOT DETECTED; INFLUENZA A H3- RESP PCR PANEL DETECTED; RHINOVIRUS/ENTEROVIRUS NOT DETECTED; SARS-CoV-2 -RESP PCR PANEL NOT DETECTED
[2022-01-28 01:35] LABS: B. PARAPERTUSSIS- RESP PCR PAN NOT DETECTED; B. PERTUSSIS- RESP PCR PANEL NOT DETECTED; C. PNEUMONIAE- RESP PCR PANEL NOT DETECTED; INFLUENZA B - RESP PCR PANEL NOT DETECTED; M. PNEUMONIAE- RESP PCR PANEL NOT DETECTED; PARAINFLUENZA VIRUS 1 NOT DETECTED; PARAINFLUENZA VIRUS 2 NOT DETECTED; PARAINFLUENZA VIRUS 3 NOT DETECTED; PARAINFLUENZA VIRUS 4 NOT DETECTED; RSV- RESP PCR PANEL NOT DETECTED
== END 2022-01-27 21:53 | disposition home or self-care (01) ==
LOC: EDUNIT# → ED 18:05
DX: J06.9 Acute upper respiratory infection, unspecified (principal); Z20.822 Contact with and (suspected) exposure to COVID-19
CPT/HCPCS: 36415; 80053; 81001; 81003; 83690; 85025; 87086; 87633; 99282; 99283

== ENCOUNTER 2022-01-28 08:24 | Outpatient (CLI) | payer MEDICARE, OTHER | END 2022-01-28 23:59 | disposition EMS.NT | LOC: EMS 08:24 | DX: R53.1 Weakness (principal) ==